=== PATIENT | male | born 1930 | race Caucasian/White ===

== ENCOUNTER → 2017-05-24 | Outpatient (CLI) | payer MEDICARE ==
--- NOTE | 2017-05-24 16:17 | US ---
EXAMINATION TYPE: US bladder DATE OF EXAM: 05/24/2017 COMPARISON: NONE CLINICAL HISTORY: 86-year-old male R39.198 Difficulty Urinating. SAP SPECIALIST NOTES: Patient drank water an hour before, his bladder was empty for the exam. Patient fe els he never fills his bladder, but does suffer from diarrhea. TECHNIQUE: Multiple sonographic images of the bladder were obtained. Findings: Unable to visualize bladder due to patient inability to fill it. Prominent prostate gland at 4.9 cm w peace. Because of bladder nonvisualization, the kidneys were briefly scanned. The right and left kidneys ha sure 10 and 11 cm, respectively without hydronephrosis. There is diffuse cortical thinning noted. IMPRESSION: 1. The patient was unable to fill the bladder one hour after oral prep. Additionally, the patient rep orts that he seldom urinates. 2. Nondistention of the bladder limits its evaluation. There is a mildly enlarged prostate gland. 3. Renal cortical thinning suggests chronic medical renal disease. Clinically correlate.
== END | disposition home or self-care (01) ==
LOC: RADUSWWP 15:34
PROVIDERS: ATTEND Family Medicine
DX: N40.0 Benign prostatic hyperplasia without lower urinary tract symptoms (principal); N28.89 Other specified disorders of kidney and ureter; Z91.09 Other allergy status, other than to drugs and biological substances
CPT/HCPCS: 76857

== ENCOUNTER → 2018-08-06 | Outpatient (CLI) | payer MEDICARE ==
--- NOTE | 2018-08-06 15:52 | US ---
EXAMINATION TYPE: US kidneys/renal and bladder DATE OF EXAM: 08/06/2018 COMPARISON: NONE CLINICAL HISTORY: N18.3 CKD. CKD EXAM MEASUREMENTS: Right Kidney: 9.1 x 4.9 x 4.6 cm Left Kidney: 11.0 x 6.0 x 5.3 cm Right Kidney: measures small in size compared to left kidney, cortical thinning Left Kidney: cortical thinning, lobulated contour Bladder: not fully distended Bilateral Jets seen: no There is no evidence for hydronephrosis at this point in time. No nephrolithiasis is seen. No rossy s are identified. The urinary bladder is anechoic. Bilateral ureteral jets are seen. IMPRESSION: Renal parenchymal thinning noted of the bilateral kidneys.
== END | disposition home or self-care (01) ==
LOC: RADUSWWP 14:06
PROVIDERS: ATTEND Family Medicine
DX: N28.9 Disorder of kidney and ureter, unspecified (principal); Z88.8 Allergy status to other drugs, medicaments and biological substances
CPT/HCPCS: 76770

== ENCOUNTER → 2018-09-03 | Outpatient (CLI) | payer MEDICARE ==
--- NOTE | 2018-09-03 16:12 | NM ---
EXAMINATION TYPE: NM bone scan whole body DATE OF EXAM: 09/03/2018 COMPARISON: NONE HISTORY: Back pain Delayed whole-body scanning was performed following the injection of 23.4 mCi Tc 99m MDP. Images acq uired 4 hours post injection. FINDINGS: Uptake within the wrists, shoulders, sternoclavicular joints is likely degenerative. Soft tissue upta ke is normal. Bandlike activity within the lumbar spine likely indicative of compression deformities, there is a mild scoliosis. There is mild uptake also at the costovertebral joints of the lower thora cic spine likely degenerative. Photopenic regions in the knees compatible with prior knee arthroplast ies. Small focal area of increased uptake present along the right anterior seventh rib is likely post traumatic IMPRESSION: There may be gastric chronic compression fractures within the lumbar spine. Degenerative changes, ost eoarthritis also likely present. Correlate for history of trauma to the anterior right seventh rib.
== END | disposition home or self-care (01) ==
LOC: RADNMMAIN 11:13
PROVIDERS: ATTEND Family Medicine
DX: M54.5 Low back pain (principal); Z88.8 Allergy status to other drugs, medicaments and biological substances
CPT/HCPCS: 78306; A9503

== ENCOUNTER 2018-09-19 05:53 | Day surgery (SDC) | payer MEDICARE ==
[2018-09-18 16:06] VITALS: BMI 23.2
[~2018-09-19 05:53] MED LIST: LACTATED RINGERS 1,000 ML IV SCH; LIDOCAINE 1% 20 ML VIAL (10MG/ML) FOR IV START INTRADERMA PRN; MIDAZOLAM 2 MG/2 ML VIAL IV PRN; Pre Op ABX Message 1 EACH MISC MISCELLANE ONE
[2018-09-19 06:50] VITALS: TEMP 97.1
[2018-09-19] MEDS ORDERED: fentaNYL (PF) 50 MCG/ML 2 ML AMP ONE (07:03)
[2018-09-19] MEDS ORDERED: LIDOCAINE 1% INJ 10MG/ML (20 ML MDV) ONE (07:03)
[2018-09-19] MEDS ORDERED: PROPOFOL 10 MG/ML 20 ML VIAL IV ONE (07:03)
[2018-09-19 08:35] LABS: Basophils % (A) 1 %; Eosinophils # (A) 0.1 k/uL (0-0.7); Eosinophils % (A) 4 %; HCT 25.2 % (39.0-53.0); Lymphocytes # (A) 1.2 k/uL (1.0-4.8); Lymphocytes % (A) 41 %; MCH 31.7 pg (25.0-35.0); MCHC 32.3 g/dL (31.0-37.0); MCV 98.2 fL (80.0-100.0); Macrocytosis Slight; Mean Platelet Volume 7.2; Monocytes # (A) 0.2 k/uL (0-1.0); Monocytes % (A) 6 %; Neutrophils # (A) 1.4 k/uL (1.3-7.7); Neutrophils % (A) 47 %; Platelet Count 228 k/uL (150-450); RBC 2.56 m/uL (4.30-5.90); WBC 2.9 k/uL (3.8-10.6)
[2018-09-19 08:42] LABS: HGB 8.1 gm/dL (13.0-17.5)
[2018-09-19 08:44] VITALS: RESP 18
[2018-09-19 09:26] VITALS: BP 91/46; PULSE 78
--- NOTE | 2018-09-19 10:53 | PCN ---
PROCEDURE NOTE PROCEDURE: Bone marrow aspirate and biopsy. INDICATION: Anemia and monoclonal gammopathy. After obtaining consent from the patient, the procedure was performed in the endoscopy suite under general anesthesia performed by Anesthesia Team. The patient was put in left lateral decubitus position. The right posterior iliac crest was localized. Skin was cleansed with ChloraPrep, all sterile procedures were followed. 1 mL of 2% Xylocaine was used for local anesthetic. needle was inserted. A 15 mL of aspirate and 1 cm core biopsy was obtained without any difficulties. Pressure applied afterwards. There was negligible blood loss. Patient tolerated the procedure very well without any immediate complications. MMODL / IJN: [id number] /
== END 2018-09-19 09:34 | disposition home or self-care (01) ==
LOC: OR 05:53
PROVIDERS: ATTEND Internal Medicine Hematology & Oncology
DX: I25.10 Atherosclerotic heart disease of native coronary artery without angina pectoris (principal); I10 Essential (primary) hypertension; E78.5 Hyperlipidemia, unspecified; R97.20 Elevated prostate specific antigen [PSA]; Z96.653 Presence of artificial knee joint, bilateral; Z95.1 Presence of aortocoronary bypass graft; Z85.828 Personal history of other malignant neoplasm of skin; Z87.891 Personal history of nicotine dependence; M19.90 Unspecified osteoarthritis, unspecified site; Z83.2 Family history of diseases of the blood and blood-forming organs and certain disorders involving the immune mechanism; Z79.82 Long term (current) use of aspirin; Z79.899 Other long term (current) drug therapy; Z91.09 Other allergy status, other than to drugs and biological substances
CPT/HCPCS: 85025; 38222; J2001; J3010; J2704

== ENCOUNTER → 2018-10-06 | Outpatient (CLI) | payer MEDICARE ==
--- NOTE | 2018-10-06 15:19 | XR ---
EXAMINATION TYPE: XR bone survey complete DATE OF EXAM: 10/06/2018 COMPARISON: NONE HISTORY: Multiple myeloma Frontal view of the chest, 2 views of the calvarium, frontal views of the proximal upper and lower ex tremities, 2 views of the spine, frontal view of the pelvis submitted on a total of 17 images. Multiple punched-out lucencies are present within the long bones of the proximal upper and lower extr emities. The pelvis shows too numerous to count punched-out lesions. Marked degenerative disc change and facet arthropathy noted in the lumbar spine, bone mineralization is reduced. Superior endplate de pression is present at L1 and T12. Patient is status post left knee arthroplasty. Surgical clips are present in the left lower extremity medially likely due to pain harvest. Patient is post median white otomy. Chest shows similar findings with multiple ribs and clavicles showing too numerous to count pu nched-out lucencies. Aorta is dense. Several arthropathy changes are present in the cervical spine, d egenerative disc changes with loss of disc height C4-5, C6-7. Calvarium also shows punched-out lesion s present. Arthropathy present within the shoulders. IMPRESSION: Multiple punched-out lucencies within the bones consistent with patient's history of mult iple myeloma. Additional findings above.
== END | disposition home or self-care (01) ==
LOC: RADXRMAIN 13:56
PROVIDERS: ATTEND Internal Medicine Hematology & Oncology
DX: M51.36 Other intervertebral disc degeneration, lumbar region (principal); M47.812 Spondylosis without myelopathy or radiculopathy, cervical region; M46.96 Unspecified inflammatory spondylopathy, lumbar region; C90.00 Multiple myeloma not having achieved remission; D61.818 Other pancytopenia; R97.20 Elevated prostate specific antigen [PSA]; I25.10 Atherosclerotic heart disease of native coronary artery without angina pectoris; Z96.652 Presence of left artificial knee joint; M19.019 Primary osteoarthritis, unspecified shoulder
CPT/HCPCS: 77075

== ENCOUNTER 2018-10-13 14:36 | Inpatient (IN) | payer MEDICARE ==
[2018-10-13] MEDS ORDERED: MORPHINE SULFATE 4 MG/ML SYRINGE IVP STA (17:58)
[2018-10-13 18:11] LABS: Appearance,Urine Clear (Clear); Bilirubin,Urine Negative (Negative); Blood,Urine Negative (Negative); Budding Yeast,Urine Occasional /hpf; Color,Urine Light Yellow; Glucose,Urine (UA) Negative (Negative); Hyaline Casts,Urine 1 /lpf (0-2); Ketones,Urine Trace (Negative); Leukocyte Esterase,Urine Negative (Negative); Mucus,Urine Rare /hpf; Nitrite,Urine Negative (Negative); PH, Urine 6.5 (5.0-8.0); Protein,Urine 1+ (Negative); Specific Gravity,Urine 1.015 (1.001-1.035); Urobilinogen,Urine <2.0 mg/dL (<2.0)
[2018-10-13 18:14] LABS: Albumin 3.9 g/dL (3.5-5.0); Calcium 10.4 mg/dL (8.4-10.2); Total Bilirubin 0.6 mg/dL (0.2-1.3); Total Protein 8.3 g/dL (6.3-8.2)
[2018-10-13 18:16] LABS: Potassium 4.4 mmol/L (3.5-5.1)
--- NOTE | 2018-10-13 18:48 | XR ---
EXAMINATION TYPE: XR chest 2V DATE OF EXAM: 10/13/2018 COMPARISON: 10/25/2009 HISTORY: 88-year-old male with pain TECHNIQUE: AP and lateral views FINDINGS: Heart upper limits of normal in size. Elongation/ectasia of the thoracic aorta is similar. No consoli dation or pleural effusion. Subtle nodular density peripheral right upper lobe may be summation artif act. Advanced degenerative changes at the glenohumeral joint. Median sternotomy wires and post-CABG clips. IMPRESSION: 1. Borderline heart size. Ectatic/tortuous thoracic aorta. No definite acute process. 2. Subtle nodular density peripheral right upper lobe could represent summation artifact or underlyin g pulmonary nodule. Nonemergent follow-up contrast-enhanced CT chest can further evaluate.
--- NOTE | 2018-10-13 19:12 | CT ---
EXAMINATION TYPE: CT abdomen pelvis w con DATE OF EXAM: 10/13/2018 COMPARISON: NONE HISTORY: 88-year-old male Back and abdominal pain. TECHNIQUE: Contiguous axial scanning of the abdomen and pelvis following administration of 100 ml Iso caitlin 300 IV contrast. Delayed images through the kidneys and coronal/sagittal reconstructions perform ed. CT DLP: 918.1 mGycm Automated exposure control for dose reduction was used. FINDINGS: Median sternotomy wires. Heart upper limits of normal in size. Ectatic aortic root at 3.8 cm. Partial ly visualized aneurysm ascending aorta at 4.3 cm. Descending thoracic aorta is borderline aneurysmal at 3.0 cm. Prominent hazy atelectasis in the lower lungs with some emphysematous change and air trapping. Arterial phase imaging of the liver, adrenal glands, kidneys, spleen with hilar splenule, and atrophi c pancreas show no gross abnormal body. No dilated small bowel, free fluid, or free air. Some scattered liquid stool seen within the colon with mild to moderate stool burden. Sigmoid diverti culosis. No pericolonic inflammatory change. There is cholelithiasis with calculi measuring up to 2.4 cm. Moderate to severe atherosclerotic calcifications within the abdominal aorta. Upper abdominal aorta e ctatic and 2.9 cm. No mesenteric or retroperitoneal lymphadenopathy. Circumferential bladder wall thickening. Prostate gland enlargement measuring 4.5 cm with some impres ida onto the posterior bladder base. Multiple pelvic phleboliths. No abnormal fluid collection in th e pelvis or pelvic lymphadenopathy seen. Multi focal small lucencies including areas of endosteal scalloping are demonstrated throughout the o sseous structures. Lumbar spine reported separately. IMPRESSION: 1. Lumbar spine reported separately. However, there are numerous small rounded lucencies throughout t he osseous structures with areas of endosteal scalloping as well. Underlying lesions such as lytic me tastatic disease or multiple myeloma is suggested. Further appropriate workup recommended. 2. Liquid stool throughout the colon. Correlate for enteritis. Sigmoid diverticulosis without acute d iverticulitis. 3. Mild circumferential bladder wall thickening could represent chronic bladder wall hypertrophy or c ystitis. Clinically correlate. Prostate gland is mildly enlarged at 4.5 cm wide. 4. Cholelithiasis. 5. Ectatic upper abdominal aorta 2.9 cm. Partially visualized aneurysmal ascending aorta 4.3 cm.
--- NOTE | 2018-10-13 19:20 | CT ---
EXAMINATION TYPE: CT thor lumbar spine w con DATE OF EXAM: 10/13/2018 COMPARISON: None HISTORY: 88-year-old male Back and abdominal pain. TECHNIQUE: Contiguous axial scanning of the thoracic and lumbar spine performed with IV Contrast, pat ient injected with 80ml mL of Isovue 300. Coronal/sagittal reconstructions performed. CT DLP: 918.1 mGycm Automated exposure control for dose reduction was used. FINDINGS: Heart borderline enlarged. Median sternotomy wires. Aneurysmal ascending aorta 4.4 cm. Large caliber to the main right and left pulmonary arteries measuring up to 3.0 cm suggesting underlying pulmonary arterial hypertension. Scattered mosaic attenuation within the lungs suggesting air trapping and small airways disease. Osseous structures demonstrate extensive burden of small lytic lesions. There are multiple areas of e ndosteal scalloping that results. Severe osteopenia limits the evaluation. Overall vertebral body heights appear maintained. Trace grade 1 anterolisthesis at C7-T1. Otherwise, alignment is maintained. Accentuated upper thoraci c kyphosis. Advanced degenerative disc disease lumbar spine and hypertrophic facet arthropathy with Baastrup's di sease in the lumbar spine. No definite acute fractures identified. IMPRESSION: 1. SEVERE DEMINERALIZATION OF THE OSSEOUS STRUCTURES LIMITS EVALUATION. 2. DIFFUSE, INNUMERABLE LYTIC LESIONS THROUGHOUT THE VISUALIZED SKELETON. MANY LESIONS RESULT IN ENDO STEAL SCALLOPING. CORRELATE FOR LYTIC METASTATIC DISEASE OR MULTIPLE MYELOMA. 3. 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 ACCENTUATED UPPER THORACI C KYPHOSIS. 4. ALLOWING FOR THE SEVERE DEGREE OF OSTEOPENIA, NO DEFINITE ACUTE FRACTURE OF THE THORACIC OR LUMBAR SPINE IS SEEN. GRADE 1 ANTEROLISTHESIS AT C7-T1. 5. 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 PULMONARY ARTERIAL HYPERTENSION. SUSPECT SMALL AIRWAYS DISEAS E IN THE LUNGS.
[2018-10-13 19:44] LABS: Basophils % (A) 0 %; Eosinophils % (A) 1 %; HCT 25.6 % (39.0-53.0); HGB 8.3 gm/dL (13.0-17.5); Lymphocytes % (A) 32 %; MCH 31.9 pg (25.0-35.0); MCHC 32.6 g/dL (31.0-37.0); MCV 98.1 fL (80.0-100.0); Mean Platelet Volume 7.3; Monocytes # (A) 0.2 k/uL (0-1.0); Monocytes % (A) 7 %; Neutrophils # (A) 1.8 k/uL (1.3-7.7); Neutrophils % (A) 58 %; Platelet Count 210 k/uL (150-450); RDW 15.4 % (11.5-15.5); WBC 3.2 k/uL (3.8-10.6)
--- NOTE | 2018-10-13 20:19 | ED ---
Back Pain HPI - General Chief Complaint: Back Pain/Injury Stated Complaint: Pain in Back/Side Time Seen by Provider: 10/13/18 16:44 Source: patient Limitations: no limitations - History of Present Illness Initial Comments: 88-year-old male presenting for "pain all over", she states she has had pain all over for months. Denies falls. He states that the pain hasnt increased recent however has been persistent and untolerable he has been having difficulty secondary to the pain getting around his home, he is scared of falling. Lives alone with . He states he was diagnosed with multiple melanoma week prior and is seeing Dr. Valverde. She could not take the pain today and called Dr. Valverde's office presents emergency department for CT. Patient states he has pain all over the abdomen in the back he states he has had good pain. Patient states her lesions on his ribs and throughout the spine. Patient denies loss of bowel bladder control, urinary retention. He denies any fevers, chest pain, leg swelling, shortness of breath. Remaining ROS (-). Pt afebrile on arrival VS stable. - Related Data Home Medications Medication Instructions Recorded Confirmed Aspirin 81 mg PO DAILY 08/30/15 09/18/18 Celecoxib [CeleBREX] 200 mg PO DAILY 08/30/15 09/19/18 Metoprolol Tartrate [Lopressor] 25 mg PO DAILY 08/30/15 09/19/18 Simvastatin [Zocor] 20 mg PO HS 08/30/15 09/19/18 Vitamin E 400 unit PO DAILY 08/30/15 09/19/18 Acetaminophen [Tylenol Arthritis] 650 mg PO Q6H PRN 09/18/18 09/19/18 Cholecalciferol [Vitamin D3 (25 1,000 unit PO DAILY 09/18/18 09/19/18 Mcg = 1000 Iu)] Isosorbide Dinitrate 30 mg PO DAILY 09/18/18 09/19/18 Tamsulosin [Flomax] 0.4 mg PO DAILY 09/18/18 09/19/18 Allergies Allergy/AdvReac Type Severity Reaction Status Date / Time enalapril maleate AdvReac insomnia Verified 10/13/18 15:54 [From Vasotec] enalaprilat dihydrate AdvReac insomnia Verified 10/13/18 15:54 [From Vasotec] cold & sinus medication AdvReac insomnia Uncoded 10/13/18 15:54 Review of Systems ROS Statement: Those systems with pertinent positive or pertinent negative responses have been documented in the HPI. ROS Other: All systems not noted in ROS Statement are negative. Past Medical History Past Medical History: Cancer, GERD/Reflux, Hyperlipidemia, Hypertension, Osteoarthritis (OA), Prostate Disorder Additional Past Medical History / Comment(s): hx. skin cancer w/radiation yrs ago, not sure why having this procedure History of Any Multi-Drug Resistant Organisms: None Reported Past Surgical History: Coronary Bypass/CABG, Joint Replacement, Orthopedic Surgery Additional Past Surgical History / Comment(s): quad. bypass 2009, left knee replaced x2, adam cataracts, shoulder surg. Past Anesthesia/Blood Transfusion Reactions: No Reported Reaction Past Psychological History: No Psychological Hx Reported Smoking Status: Former smoker - Past Family History Mother Family Medical History: Myocardial Infarction (DC) Father Additional Family Medical History / Comment(s): emphysema,Alzheimer's General Exam - General Exam Comments Initial Comments: General: The patient is awake and alert, appear uncomfortable Eye: +3 mm pupils are equal, round and reactive to light, extra-ocular movements are intact. No nystagmus. There is normal conjunctiva bilaterally. No signs of icterus. Ears, nose, mouth and throat: There are moist mucous membranes and no oral lesions. Neck: The neck is supple, there is no tenderness or JVD. Cardiovascular: There is a regular rate and rhythm. No murmur, rub or gallop is appreciated. Respiratory: Lungs are clear to auscultation, respirations are non-labored, breath sounds are equal. No wheezes, stridor, rales, or rhonchi. Gastrointestinal: Soft, non-distended, non-tender abdomen without masses or organomegaly noted. There is no rebound or guarding present. No CVA tenderness. Bowel sounds are unremarkable. Musculoskeletal: Midline tenderness to palpation of the thoracic and lumbar spine. (+) SLR b/l. Normal ROM of the LE with full strength. Full sensation of the LE b/l. Strength 5/5. DP and Radial pulses equal bilaterally 2+. Pain to palpation of the lower ribs. Neurological: A&O x 3. CN II-XII intact, There are no obvious motor or sensory deficits. Coordination appears grossly intact. Speech is normal. Skin: Skin is warm and dry and no rashes or lesions are noted. Psychiatric: Cooperative, appropriate mood & affect, normal judgment. Limitations: no limitations Course Vital Signs 10/13/18 10/13/18 10/13/18 15:52 18:01 19:27 Temperature 97.7 F Pulse Rate 55 L 67 63 Respiratory 16 18 18 Rate Blood Pressure 154/69 177/74 162/68 O2 Sat by Pulse 100 99 97 Oximetry Medical Decision Making - Medical Decision Making 88-year-old male with recent diagnosis of multiple melanoma presenting for pain all over. Patient states pain is not controlled outpatient told to come for a CT by Dr. Valverde his oncologist. CT revealed lytic lesions of the spine diffusely this finding consistent with multiple myeloma. Patient had previous bone scan revealing rib lesions patient has point localized tenderness. There is no acute intra-abdominal processes at this time. There is noted to aneursym of the aorta. No evidence of dissection. Pt denies CP/SOB. Pain controlled morphine. Patient requesting food. Patient's family is having difficulty at home managing care secondary to pain. At this time feel patient should be admitted for placement via social work if the patient is not safe at home. Patient will also be admitted for pain control. - Lab Data Result diagrams: 10/13/18 19:20 10/13/18 17:42 Lab Results 10/13/18 10/13/18 10/13/18 Range/Units 17:42 17:42 17:53 WBC (3.8-10.6) k/uL RBC (4.30-5.90) m/uL Hgb (13.0-17.5) gm/dL Hct (39.0-53.0) % MCV (80.0-100.0) fL MCH (25.0-35.0) pg MCHC (31.0-37.0) g/dL RDW (11.5-15.5) % Plt Count (150-450) k/uL Neutrophils % % Lymphocytes % % Monocytes % % Eosinophils % % Basophils % % Neutrophils # (1.3-7.7) k/uL Lymphocytes # (1.0-4.8) k/uL Monocytes # (0-1.0) k/uL Eosinophils # (0-0.7) k/uL Basophils # (0-0.2) k/uL Sodium 137 (137-145) mmol/L Potassium 4.4 (3.5-5.1) mmol/L Chloride 103 (98-107) mmol/L Carbon Dioxide 28 (22-30) mmol/L Anion Gap 6 mmol/L BUN 25 H (9-20) mg/dL Creatinine 1.12 (0.66-1.25) mg/dL Est GFR (CKD-EPI)AfAm 67 (>60 ml/min/1.73 sqM) Est GFR (CKD-EPI)NonAf 58 (>60 ml/min/1.73 sqM) Glucose 86 (74-99) mg/dL Plasma Lactic Acid Walker 1.1 (0.7-2.0) mmol/L Calcium 10.4 H (8.4-10.2) mg/dL Total Bilirubin 0.6 (0.2-1.3) mg/dL AST 25 (17-59) U/L ALT 18 L (21-72) U/L Alkaline Phosphatase 85 (38-126) U/L Total Protein 8.3 H (6.3-8.2) g/dL Albumin 3.9 (3.5-5.0) g/dL Urine Color Light Yellow Urine Appearance Clear (Clear) Urine pH 6.5 (5.0-8.0) Ur Specific [place] 1.015 (1.001-1.035) Urine Protein 1+ H (Negative) Urine Glucose (UA) Negative (Negative) Urine Ketones Trace H (Negative) Urine Blood Negative (Negative) Urine Nitrite Negative (Negative) Urine Bilirubin Negative (Negative) Urine Urobilinogen <2.0 (<2.0) mg/dL Ur Leukocyte Esterase Negative (Negative) Hyaline Casts 1 (0-2) /lpf Urine Mucus Rare H (None) /hpf Urine Yeast (Budding) Occasional H (None) /hpf 10/13/18 Range/Units 19:20 WBC 3.2 L (3.8-10.6) k/uL RBC 2.60 L (4.30-5.90) m/uL Hgb 8.3 L (13.0-17.5) gm/dL Hct 25.6 L (39.0-53.0) % MCV 98.1 (80.0-100.0) fL MCH 31.9 (25.0-35.0) pg MCHC 32.6 (31.0-37.0) g/dL RDW 15.4 (11.5-15.5) % Plt Count 210 (150-450) k/uL Neutrophils % 58 % Lymphocytes % 32 % Monocytes % 7 % Eosinophils % 1 % Basophils % 0 % Neutrophils # 1.8 (1.3-7.7) k/uL Lymphocytes # 1.0 (1.0-4.8) k/uL Monocytes # 0.2 (0-1.0) k/uL Eosinophils # 0.0 (0-0.7) k/uL Basophils # 0.0 (0-0.2) k/uL Sodium (137-145) mmol/L Potassium (3.5-5.1) mmol/L Chloride (98-107) mmol/L Carbon Dioxide (22-30) mmol/L Anion Gap mmol/L BUN (9-20) mg/dL Creatinine (0.66-1.25) mg/dL Est GFR (CKD-EPI)AfAm (>60 ml/min/1.73 sqM) Est GFR (CKD-EPI)NonAf (>60 ml/min/1.73 sqM) Glucose (74-99) mg/dL Plasma Lactic Acid Walker (0.7-2.0) mmol/L Calcium (8.4-10.2) mg/dL Total Bilirubin (0.2-1.3) mg/dL AST (17-59) U/L ALT (21-72) U/L Alkaline Phosphatase (38-126) U/L Total Protein (6.3-8.2) g/dL Albumin (3.5-5.0) g/dL Urine Color Urine Appearance (Clear) Urine pH (5.0-8.0) Ur Specific [place] (1.001-1.035) Urine Protein (Negative) Urine Glucose (UA) (Negative) Urine Ketones (Negative) Urine Blood (Negative) Urine Nitrite (Negative) Urine Bilirubin (Negative) Urine Urobilinogen (<2.0) mg/dL Ur Leukocyte Esterase (Negative) Hyaline Casts (0-2) /lpf Urine Mucus (None) /hpf Urine Yeast (Budding) (None) /hpf Disposition Clinical Impression: Intractable pain, Hx of multiple myeloma, Back pain, Rib pain Disposition: HOME SELF-CARE Condition: Stable Is patient prescribed a controlled substance at d/c from ED?: No Referrals: Jose Miguel Tapia MD [Primary Care Provider] - 1-2 days Time of Disposition: 20:20 Decision to Admit Reason: Admit from EC Decision Date: 10/13/18 Decision Time: 20:20
[2018-10-13] MEDS ORDERED: NALOXONE 0.4 MG/ML 1 ML VIAL IV PRN (20:20)
[2018-10-13] MEDS: MORPHINE SULFATE 4 MG/ML SYRINGE IV PRN (21:53)
[2018-10-14 00:35] VITALS: BMI 21.4
[2018-10-14] MEDS ORDERED: MELATONIN 5 MG TABLET PO PRN (00:35)
[2018-10-14] MEDS: SODIUM CHLORIDE 0.9% 1,000 ML IV SCH ×3 (01:04→23:58)
[2018-10-14] MEDS: MORPHINE SULFATE 4 MG/ML SYRINGE IV PRN ×3 (01:04→12:31)
[2018-10-14] MEDS ORDERED: ACETAMINOPHEN TAB 325 MG TAB PO PRN (08:20)
[2018-10-14] MEDS ORDERED: NITROGLYCERIN SL TABS 0.4 MG TAB SUBLINGUAL PRN (11:39)
[2018-10-14] MEDS ORDERED: ISOSORBIDE MONONITRATE ER 30 MG TAB.ER.24H PO SCH (11:45)
[2018-10-14] MEDS ORDERED: DEXAMETHASONE 4 MG TAB PO STA (11:51)
[2018-10-14] MEDS ORDERED: SODIUM CHLORIDE 0.9% 250 ML with PAMIDRONATE 60 MG IV ONE ×2 (11:51)
[2018-10-14] MEDS ORDERED: PANTOPRAZOLE 40 MG TABLET PO STA (11:59)
--- NOTE | 2018-10-14 12:01 | P.CONS ---
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 On September 03 he did have a bone scan which failed to show metastatic myeloma to the bone on 09/19/2018 bone marrow biopsy was performed and positive for sheets of record get monoclonal A light chain restricted cells consistent with multiple myeloma although cytogenetics were revealing as normal. He was last seen by Dr. Valverde office at that time the risks and benefits of treatment given his advanced age and multiple comorbidities was discussed although his most recent bone scan revealed no evidence of metastatic myeloma to the bone his back pain has pers isted over the last month as well as his calcium levels are elevated therefore treatment with Revlimid and weekly dexamethasone and every 6 weeksand Zometa has been ordered he has not yet started this treatment if his back pain is persistent and unrelieved with current therapy an MRI of the spine has been ordered for potential palliative radiation Review of Systems 14 point review of systems is assessed and completed in all negative except for HPI Past Medical History Past Medical History: Cancer, GERD/Reflux, Hyperlipidemia, Hypertension, Osteoarthritis (OA), Prostate Disorder Additional Past Medical History / Comment(s): hx. skin cancer w/radiation yrs ago, not sure why having this procedure History of Any Multi-Drug Resistant Organisms: None Reported Past Surgical History: Coronary Bypass/CABG, Joint Replacement, Orthopedic Surgery Additional Past Surgical History / Comment(s): quad. bypass 2009, left knee replaced x2, adam cataracts, shoulder surg. Past Anesthesia/Blood Transfusion Reactions: No Reported Reaction Past Psychological History: No Psychological Hx Reported Smoking Status: Former smoker - Past Family History Mother Family Medical History: Myocardial Infarction ([place]) Father Additional Family Medical History / Comment(s): emphysema,Alzheimer's Medications and Allergies Home Medications Medication Instructions Recorded Confirmed Type Aspirin 81 mg PO DAILY 08/30/15 10/14/18 History Celecoxib [CeleBREX] 200 mg PO BID 08/30/15 10/14/18 History Metoprolol Tartrate [Lopressor] 25 mg PO DAILY 08/30/15 10/14/18 History Simvastatin [Zocor] 20 mg PO HS 08/30/15 10/14/18 History Tamsulosin [Flomax] 0.4 mg PO DAILY 09/18/18 10/14/18 History Cyanocobalamin (Vitamin B-12) 1,000 mcg PO DAILY 10/14/18 10/14/18 History [Vitamin B-12] Ergocalciferol (Vitamin D2) 50,000 unit PO Q28D 10/14/18 10/14/18 History [Vitamin D2] HYDROcodone/APAP 5-325MG [Luna 1 tab PO Q6H PRN 10/14/18 10/14/18 History 5-325] Isosorbide Mononitrate ER [Imdur] 30 mg PO DAILY 10/14/18 10/14/18 History Lenalidomide [Revlimid] 15 mg PO DIRECTED 10/14/18 10/14/18 History Nitroglycerin Sl Tabs [Nitrostat] 0.4 mg SUBLINGUAL Q5M PRN 10/14/18 10/14/18 History Vitamin B Complex 1 cap PO DAILY 10/14/18 10/14/18 History rOPINIRole HCL [Requip] 0.25 mg PO HS 10/14/18 10/14/18 History traZODone HCL 50 - 100 mg PO HS PRN 10/14/18 10/14/18 History Allergies Allergy/AdvReac Type Severity Reaction Status Date / Time enalapril maleate AdvReac insomnia Verified 10/13/18 20:46 [From Vasotec] enalaprilat dihydrate AdvReac insomnia Verified 10/13/18 20:46 [From Vasotec] cold & sinus medication AdvReac insomnia Uncoded 10/13/18 15:54 Physical Exam Vitals: Vital Signs Temp Pulse Pulse Pulse Resp BP BP 10/14/18 08:00 98.4 F 66 70 16 121/57 10/14/18 02:15 70 16 10/13/18 23:45 97.9 F 70 14 128/78 10/13/18 22:14 98.3 F 133 H 15 133/69 10/13/18 22:10 70 17 10/13/18 19:27 63 18 162/68 10/13/18 18:01 67 18 177/74 10/13/18 15:52 97.7 F 55 L 16 154/69 Pulse Ox 10/14/18 08:00 95 10/14/18 02:15 10/13/18 23:45 95 10/13/18 22:14 94 L 10/13/18 22:10 10/13/18 19:27 97 10/13/18 18:01 99 10/13/18 15:52 100 Intake and Output 10/13/18 10/14/18 10/14/18 22:59 06:59 14:59 Intake Total 10 Output Total 125 Balance -125 10 Intake: IV 10 Invasive Line 1 10 Output: Urine 125 Other: Voiding Method Urinal Urinal Urinal # Voids 2 Weight 65.771 kg General: Alert and Oriented x3, No Acute Distress Head: Normocytic, Atraumatic Neck: Supple Mouth: No Lesions, No Thrush Eyes: Non-sclerotic No Palpable cervical, supraclavicular, axillary adenopathy Heart: Regular Rate, Regular Rhythm Lungs: Clear to Ausculations, No Wheeze, No Rhonchi, Diminishe bilateral lower lobes, No increased respiratory effort noted Abdomen: Soft, Non-Distended, Non-Tended, BSx4 Extremities: No Edema, Equal Strength Neurological: No Focal Defects: No sensory or motor deficits noted Psych: Calm and cooperative Results CBC & Chem 7: 10/14/18 12:47 10/14/18 12:47 Labs: Abnormal Lab Results - Last 24 Hours (Table) 10/13/18 10/13/18 10/13/18 Range/Units 17:42 17:53 19:20 WBC 3.2 L (3.8-10.6) k/uL RBC 2.60 L (4.30-5.90) m/uL Hgb 8.3 L (13.0-17.5) gm/dL Hct 25.6 L (39.0-53.0) % BUN 25 H (9-20) mg/dL Calcium 10.4 H (8.4-10.2) mg/dL ALT 18 L (21-72) U/L Total Protein 8.3 H (6.3-8.2) g/dL Urine Protein 1+ H (Negative) Urine Ketones Trace H (Negative) Urine Mucus Rare H (None) /hpf Urine Yeast (Budding) Occasional H (None) /hpf Assessment and Plan Plan: Assessment and Recommendations: IgG [place] Multiple Myeloma - Recent Diagnosis: - Revlimid 15mg PO Daily Days 1-21, q28 and weekly Dexamethasone along with Zometa q6 weeks has been ordered although not started - Will initiate dexamethasone 20mg po x1 today, PPI, and a dose of aredia Hypercalcemia: - Secondary to multiple Myeloma - Aredia x1 today Back/Bone Pain secondary to Metastatic Disease Multiple Myeloma: - Consult has been placed for radiation oncology to evaluate for palliative xrt to spine. - Dex today should help with pain along with farrah MAYO.
[2018-10-14] MEDS: ASPIRIN 81 MG PO SCH (12:33)
[2018-10-14] MEDS: TAMSULOSIN 0.4 MG CAP.ER.24H PO SCH (12:33)
[2018-10-14] MEDS: MELOXICAM 7.5 MG TAB PO SCH (12:46)
[2018-10-14] MEDS: METOPROLOL TARTRATE 25 MG TAB PO SCH (12:55)
[2018-10-14] MEDS: ISOSORBIDE MONONITRATE ER 30 MG TAB.ER.24H PO SCH (12:55)
[2018-10-14 13:21] LABS: Albumin 3.6 g/dL (3.5-5.0); Calcium 10.1 mg/dL (8.4-10.2); Potassium 4.9 mmol/L (3.5-5.1); Total Bilirubin 0.4 mg/dL (0.2-1.3)
[2018-10-14 13:24] LABS: Basophils % (A) 0 %; Eosinophils # (A) 0.1 k/uL (0-0.7); Eosinophils % (A) 2 %; HCT 28.4 % (39.0-53.0); HGB 9.2 gm/dL (13.0-17.5); Hypochromasia Slight; Lymphocytes # (A) 0.8 k/uL (1.0-4.8); Lymphocytes % (A) 29 %; MCH 32.4 pg (25.0-35.0); MCHC 32.3 g/dL (31.0-37.0); MCV 100.2 fL (80.0-100.0); Macrocytosis Slight; Mean Platelet Volume 7.1; Monocytes # (A) 0.2 k/uL (0-1.0); Monocytes % (A) 6 %; Neutrophils # (A) 1.6 k/uL (1.3-7.7); Neutrophils % (A) 62 %; Platelet Count 226 k/uL (150-450); RBC 2.84 m/uL (4.30-5.90); RDW 15.6 % (11.5-15.5); WBC 2.7 k/uL (3.8-10.6)
[2018-10-14] MEDS: MORPHINE SULFATE ER 15 MG TABLET PO SCH ×2 (15:29→23:55)
--- NOTE | 2018-10-14 19:55 | HP ---
HISTORY AND PHYSICAL CHIEF COMPLAINT: Intractable back and abdominal pain. HISTORY OF PRESENT ILLNESS: This is another admission of very few for this 88-year-old white male to this hospital. He has been having increasing amounts of difficulty with back pain and anemia. He also has a history of hypertension and CAD. 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 Bone pain is getting worse. He has been on Vicodin at home, but it is not holding him. It is not known what therapy he will be a candidate for. REVIEW OF SYSTEMS: He has had no neurologic problems, headaches, change in vision or hearing, cough, hemoptysis, shortness of breath, abdominal pain, nausea, vomiting, hematemesis, melena, hematochezia, jaundice, hematuria, frequency, urgency, renal failure, diabetes, etc. Past medical history, family history, and personal and social histories reveal he is ALLERGIC TO [employer]ERIS[employer] INHIBITORS. CURRENT MEDICATIONS: Current medications include: 1. Nitro sublingually p.r.n. 2. B12 [id number]. 3. Vicodin 5 q.4 p.r.n. 4. Tamsulosin 0.4 at bedtime. 5. Isosorbide mononitrate 30 mg once a day. 6. Metoprolol 25 mg once a day. 7. Simvastatin 20 at bedtime. 8. Requip 0.25 at bedtime p.r.n. leg cramps. 9. Celebrex 200 twice a day. 10.Aspirin 81 mg. The remainder of his history is unremarkable. He used to smoke but does not any longer. He does not drink, either. There is a significant social problem, in that his is extremely frail, weak and has advanced stage IV congestive heart failure; he provides most of the care around the house. PHYSICAL EXAMINATION: Blood pressure is 116/70 with a pulse of 60 and regular, respirations 16. He is afebrile. In general he appeared to be slender and somewhat uncomfortable. Lymph nodes are not enlarged. Skin was clear. Head, ears, eyes, nose, mouth and throat unremarkable, the pupils being round and reactive and gaze conjugate. Carotids are normal. There are no bruits. Neck veins are not distended. Chest is clear to auscultation and percussion. The cardiac exam demonstrates normal sinus rhythm with no murmurs or extra sounds. The abdomen is flat and nontender without visceromegaly or masses. Extremities are normal. Neurologically he is intact. He is admitted to the hospital with the diagnoses: 1. Intractable bone pain. 2. Multiple myeloma. 3. Hypertension. 4. History of coronary artery disease. PLAN: 1. Bed rest. 2. IV fluids. 3. Consult with Hematology/Oncology. 4. Add MS Sharp to his Vicodin, which will be given p.r.n. for break-through pain. MMODL / IJN: [id number] /
--- NOTE | 2018-10-14 19:58 | PN ---
PROGRESS NOTE CHIEF COMPLAINT: Intractable bone pain in the back and ribs secondary to multiple myeloma. HISTORY OF PRESENT ILLNESS: This gentleman is currently resting reasonably comfortably. He is not short of breath. He has had no fever or chills. He has had no nausea or vomiting. Review of systems is otherwise at this time normal. He is voiding without any difficulty. PHYSICAL EXAMINATION: Vital signs are normal. Head, ears, eyes, nose, mouth and throat are normal. The chest is clear, but breath sounds are shallow. Cardiac exam sounds like sinus rhythm with no murmurs or extra sounds. The abdomen is flat and soft. Extremities are normal. IMPRESSION: 1. Multiple myeloma with bone pain in the spine and ribs. 2. Coronary artery disease. 3. Old chronic obstructive pulmonary disease. 4. Hypertension. PLAN: 1. Add MS Sharp to his program. 2. Consult Hematology/Oncology. MMODL / AYALA: [id number] /
[2018-10-14] MEDS: HYDROcodone/APAP 5-325MG 1 EACH TAB PO PRN (20:56)
[2018-10-15] MEDS: SODIUM CHLORIDE 0.9% 1,000 ML IV SCH (02:01)
[2018-10-15] MEDS: MORPHINE SULFATE 4 MG/ML SYRINGE IV PRN (03:07)
[2018-10-15] MEDS: TAMSULOSIN 0.4 MG CAP.ER.24H PO SCH (09:02)
[2018-10-15] MEDS: MORPHINE SULFATE ER 15 MG TABLET PO SCH ×2 (09:02→22:48)
[2018-10-15] MEDS: ISOSORBIDE MONONITRATE ER 30 MG TAB.ER.24H PO SCH (09:02)
[2018-10-15] MEDS: ASPIRIN 81 MG PO SCH (09:02)
[2018-10-15] MEDS: METOPROLOL TARTRATE 25 MG TAB PO SCH (09:02)
[2018-10-15] MEDS: MELOXICAM 7.5 MG TAB PO SCH (09:03)
[2018-10-15 11:44] LABS: Immunoglobulin A <25.5 mg/dL (60.0-350.0); Immunoglobulin M 28.5 mg/dL (40.0-280.0)
--- NOTE | 2018-10-15 12:15 | P.PN ---
Subjective Progress Note Date: 10/15/18 Principal diagnosis: Increased pain, inability to ambulate, MM Discussed with primary oncologist and would like further evaluation with MRI Objective - Vital Signs Vital signs: Vital Signs Temp 97.6 F 10/15/18 05:02 Pulse 66 10/15/18 05:02 Resp 16 10/15/18 05:02 BP 138/82 10/15/18 05:02 Pulse Ox 91 L 10/15/18 05:02 Intake & Output 10/14/18 10/15/18 10/15/18 18:59 06:59 18:59 Intake Total 850 750 Balance 850 750 Weight 65.771 kg Intake: IV 30 Invasive Line 1 30 Intake, IV Titration 750 Amount Sodium Chloride 0.9% 1, 600 000 ml @ 75 mls/hr IV . [id number] STACY Rx#:[id number] Sodium Chloride 0.9% 250 150 ml @ 83 mls/hr IV .Q3H1M ONE with Pamidronate 60 mg Rx#:[id number] Oral 820 Other: Voiding Method Urinal Toilet # Voids 4 - Exam General: Alert and Oriented x3, No Acute Distress Head: Normocytic, Atraumatic Neck: Supple Mouth: No Lesions, No Thrush Eyes: Non-sclerotic No Palpable cervical, supraclavicular, axillary adenopathy Heart: Regular Rate, Regular Rhythm Lungs: Clear to Ausculations, No Wheeze, No Rhonchi, Diminishe bilateral lower lobes, No increased respiratory effort noted Abdomen: Soft, Non-Distended, Non-Tended, BSx4 Extremities: No Edema, Equal Strength Neurological: No Focal Defects: No sensory or motor deficits noted Psych: Calm and cooperative - Labs CBC & Chem 7: 10/14/18 12:47 10/14/18 12:47 Labs: Abnormal Lab Results - Last 24 Hours (Table) 10/14/18 10/14/18 10/14/18 Range/Units 12:47 12:47 12:47 WBC 2.7 L (3.8-10.6) k/uL RBC 2.84 L (4.30-5.90) m/uL Hgb 9.2 L (13.0-17.5) gm/dL Hct 28.4 L (39.0-53.0) % MCV 100.2 H (80.0-100.0) fL RDW 15.6 H (11.5-15.5) % Lymphocytes # 0.8 L (1.0-4.8) k/uL Glucose 100 H (74-99) mg/dL ALT 15 L (21-72) U/L IgG 2660.0 H (700.0-1600.0) mg/dL IgA <25.5 L (60.0-350.0) mg/dL IgM 28.5 L (40.0-280.0) mg/dL Assessment and Plan Plan: Assessment and Recommendations: IgG [place] Multiple Myeloma - Recent Diagnosis: - Revlimid 15mg PO Daily Days 1-21, q28 and weekly Dexamethasone along with Zometa q6 weeks has been ordered although not started - Will initiate dexamethasone 20mg po x1 today, PPI, and a dose of aredia Hypercalcemia: - Secondary to multiple Myeloma - Aredia x1 today Back/Bone Pain secondary to Metastatic Disease Multiple Myeloma: - Consult has been placed for radiation oncology to evaluate for palliative xrt to spine. - Status Post dexamethasone and aredia x1 Plan: - MRI of spine - XRT palliative - PT/OT Ruby MAYO.
--- NOTE | 2018-10-15 18:08 | PN ---
PROGRESS NOTE CHIEF COMPLAINT: Back pain, anemia and weakness with multiple myeloma. HISTORY OF PRESENT ILLNESS: This gentleman is feeling a bit better. Pain is improved slightly. He is sitting up and able to the eat. Steroids have been started. PHYSICAL EXAM: Chest is clear. Cardiac exam is normal. Abdomen is soft and nontender. Extremities are normal. Neurological is intact. IMPRESSION: 1. Back pain due to multiple myeloma. 2. Coronary artery disease. 3. History of chronic obstructive pulmonary disease. PLAN: Await further recommendations from Oncology. He will probably be set up for radiation as an outpatient of the spine lesion and chemotherapy will also be introduced. He could probably go home whenever oncology clears him. MMODL / IJN: [id number] /
[2018-10-16] MEDS: SODIUM CHLORIDE 0.9% 1,000 ML IV SCH ×3 (05:24→22:00)
[2018-10-16] MEDS ORDERED: ALPRAZolam 1 MG TAB PO STA (09:09)
[2018-10-16] MEDS: ASPIRIN 81 MG PO SCH (09:21)
[2018-10-16] MEDS: MORPHINE SULFATE ER 15 MG TABLET PO SCH ×2 (09:21→20:56)
[2018-10-16] MEDS: ISOSORBIDE MONONITRATE ER 30 MG TAB.ER.24H PO SCH (09:21)
[2018-10-16] MEDS: MELOXICAM 7.5 MG TAB PO SCH (09:22)
[2018-10-16] MEDS: METOPROLOL TARTRATE 25 MG TAB PO SCH (09:22)
[2018-10-16] MEDS: TAMSULOSIN 0.4 MG CAP.ER.24H PO SCH (09:23)
--- NOTE | 2018-10-16 11:48 | MR ---
EXAMINATION TYPE: MR lumbar spine wo/w con DATE OF EXAM: 10/16/2018 COMPARISON: NONE HISTORY: Back/rib/abdominal pain, metastatic disease, hx melanoma TECHNIQUE: T1 and T2 axial and sagittal images of the lumbar spine are submitted. FINDINGS: There is no abnormal signal seen within the visualized spinal cord or paraspinal soft tissu es. There is diffuse abnormal signal throughout the visualized osseous structures in a pattern compat ible with widespread metastases to the lumbar segments and visualized pelvic bones. At L1-2 there is severe degenerative disc disease with facet arthropathy. There is central disc bulgi ng and borderline canal stenosis. Moderate to severe bilateral foraminal encroachment. At L2-3 there is severe degenerative disc disease with central disc protrusion and moderate canal pierce nosis. Facet arthropathy contributes and there is moderate to severe bilateral foraminal encroachment . At L3-4 there is near degenerative disc disease with broad-based disc protrusion, hypertrophic change of the facets and ligamentum flavum. Moderate canal stenosis and moderate to severe bilateral forami nal encroachment. At L4-5 there is severe degenerative disc disease with posterior disc bulging and hypertrophic spondy losis. Moderate to severe bilateral foraminal encroachment and moderate canal stenosis. Ligamentum fl avum hypertrophy and facet arthropathy contribute At L5-S1 there is severe degenerative disc disease with central disc protrusion. There is mild efface ment of thecal sac and moderate to severe bilateral foraminal encroachment. Borderline to mild centra l stenosis. IMPRESSION: 1. Diffuse bony metastasis with no evidence of cord compression or enhancing canal lesion. 2. Severe degenerative disc disease at all levels with significant canal stenosis and foraminal encro achment at all levels secondary to disc protrusions and hypertrophic changes. EXAMINATION TYPE: MR thoracic spine wo/w con DATE OF EXAM: 10/16/2018 COMPARISON: CT scan 10/13/2018 HISTORY: Back/rib/abdominal pain, metastatic disease, hx melanoma CONTRAST: Standard multiplanar, multisequence MRI departmental protocol utilizing 7 mL intravenous Gadavist jacobo olinium contrast. FINDINGS: There is a grade 1 anterolisthesis C7 on T1 with multilevel moderate to severe degenerative disc dise ase. Thoracic kyphosis noted. There is diffuse heterogeneous marrow changes throughout the visualized bone marrow suggestive of wid espread bony metastases. Disc bulging T1-T2, and T2-T3. No Canal stenosis. At T8-9 and T9-T10 there is central disc bulging but no canal stenosis or spinal cord contact. Mild loss of vertebral body height of T5 appears chronic. Multilevel facet arthropathy noted. Assessment spinal cord is limited due to motion artifact. Grossly no abnormal signal suspected. There is no enhancement or findings suspicious for cord compression. On the T1 images there is artifact at the level of T9-T10 on the sagittal images. However, the spinal cord has a normal appearance on the axial images suggesting artifact is the etiology. No diagnostic evidence of an enhancing mass. Small bilateral pleural effusions are seen. Localizing images demonstrates multilevel severe degenera tive disc disease of the cervical spine with probable bony involvement. There is a heterogeneous kumar marquis to all the visualized ribs suggestive of widespread bony metastases. IMPRESSION: 1. Diffuse abnormal pattern to the visualized osseous structures compatible with widespread bony meta stases. No enhancing soft tissue mass or cord compression. As noted above there is limitation in eval uation the lower thoracic spinal cord due to artifact on the sagittal images. However, the axial imag es demonstrate a normal signal pattern with no diagnostic evidence of mass. 2. Severe multilevel degenerative disc disease with multilevel disc bulging but no canal stenosis.
[2018-10-16] MEDS: MORPHINE SULFATE 4 MG/ML SYRINGE IV PRN (11:52)
--- NOTE | 2018-10-16 13:13 | P.PN ---
Subjective Progress Note Date: 10/16/18 Principal diagnosis: Increased pain, inability to ambulate, MM Will start patients revlimid, and add dexamethasone 20mg po daily x4 days. Have radiation see him for palliative radiation to begin. Objective - Vital Signs Vital signs: Vital Signs Temp 98 F 10/16/18 12:49 Pulse 70 10/16/18 12:49 Resp 16 10/16/18 12:49 BP 108/63 10/16/18 12:49 Pulse Ox 93 L 10/16/18 12:49 Intake & Output 10/15/18 10/16/18 10/16/18 18:59 06:59 18:59 Intake Total 2400 350 Output Total 250 Balance 2150 350 Intake: Oral 2400 350 Output: Urine 250 Other: Voiding Method Toilet Toilet # Voids 1 4 - Exam General: Alert and Oriented x3, No Acute Distress Head: Normocytic, Atraumatic Neck: Supple Mouth: No Lesions, No Thrush Eyes: Non-sclerotic No Palpable cervical, supraclavicular, axillary adenopathy Heart: Regular Rate, Regular Rhythm Lungs: Clear to Ausculations, No Wheeze, No Rhonchi, Diminishe bilateral lower lobes, No increased respiratory effort noted Abdomen: Soft, Non-Distended, Non-Tended, BSx4 Extremities: No Edema, Equal Strength Neurological: No Focal Defects: No sensory or motor deficits noted Psych: Calm and cooperative - Labs CBC & Chem 7: 10/14/18 12:47 10/14/18 12:47 Assessment and Plan Plan: Assessment and Recommendations: IgG [place] Multiple Myeloma - Recent Diagnosis: - Revlimid 15mg PO Daily Days 1-21, q28 and weekly Dexamethasone along with Zometa q6 weeks has been ordered although not started - Will initiate dexamethasone 20mg po x1 today, PPI, and a dose of aredia Hypercalcemia: - Secondary to multiple Myeloma - Aredia x1 today Back/Bone Pain secondary to Metastatic Disease Multiple Myeloma: - Consult has been placed for radiation oncology to evaluate for palliative xrt to spine. - Status Post dexamethasone and aredia x1 Plan: - MRI of spine reviewed, no compression, bony mets - Start Rev when available - XRT palliative - PT/OT - Dex 20mg po Daily x4 days - PPI Rubysharad GALVEZ
[2018-10-16] MEDS ORDERED: DEXAMETHASONE 4 MG TAB PO SCH (19:15)
--- NOTE | 2018-10-16 19:43 | PN ---
PROGRESS NOTE CHIEF COMPLAINT: Multiple myeloma and back pain. HISTORY OF PRESENT ILLNESS: This gentleman is doing fairly well. He is up and about but still has pain. He is going today for MRI of the spine. REVIEW OF SYSTEMS: He has had no fever, chills, shortness of breath, abdominal pain, constipation, etc. PHYSICAL EXAMINATION: Chest is clear. Cardiac exam is normal. The abdomen is flat and soft. Flanks are nontender. Extremities are normal. Neurologically he is intact. IMPRESSION: 1. Multiple myeloma. 2. Coronary artery disease. 3. Chronic obstructive pulmonary disease. 4. Hypertension. PLAN: Await results of MRI, after which treatment plan will be established, and he can probably go home tomorrow. MMODL / IJN: [id number] /
[2018-10-16] MEDS: PANTOPRAZOLE 40 MG TABLET PO SCH (20:56)
[2018-10-17] MEDS: ASPIRIN 81 MG PO SCH (07:54)
[2018-10-17] MEDS: TAMSULOSIN 0.4 MG CAP.ER.24H PO SCH (07:54)
[2018-10-17] MEDS: ISOSORBIDE MONONITRATE ER 30 MG TAB.ER.24H PO SCH (07:54)
[2018-10-17] MEDS: PANTOPRAZOLE 40 MG TABLET PO SCH (07:54)
[2018-10-17] MEDS: METOPROLOL TARTRATE 25 MG TAB PO SCH (07:54)
[2018-10-17] MEDS: MORPHINE SULFATE ER 15 MG TABLET PO SCH (07:55)
[2018-10-17] MEDS: MELOXICAM 7.5 MG TAB PO SCH (08:00)
[2018-10-17] MEDS ORDERED: DEXAMETHASONE 4 MG TAB PO SCH (09:00)
--- NOTE | 2018-10-17 11:08 | PN ---
PROGRESS NOTE CHIEF COMPLAINT: Back pain. HISTORY OF PRESENT ILLNESS: This gentleman's back pain is not getting better. His chemotherapy has been started. He has some loss of appetite. PHYSICAL EXAMINATION: Color is good. Hydration is good. Head, ears, eyes, nose, mouth, and throat are normal. Chest is clear. Cardiac exam is normal. Abdomen is soft, nontender. IMPRESSION: 1. Intractable bone pain. 2. Multiple myeloma. 3. Coronary artery disease. 4. Hypertension. 5. Anorexia. PLAN: Increase analgesia by raising his MS Contin. MMODL / IJN: [id number] /
--- NOTE | 2018-10-17 12:38 | P.PN ---
Subjective Progress Note Date: 10/17/18 Principal diagnosis: Increased pain, inability to ambulate, MM Ok for patient to be discharged from oncology stand point if pain is controlled. Daughter was notpresent. Patient more alert in chair during visit Objective - Vital Signs Vital signs: Vital Signs Temp 98.2 F 10/17/18 05:00 Pulse 68 10/17/18 08:00 Resp 18 10/17/18 08:00 BP 130/66 10/17/18 05:00 Pulse Ox 95 10/17/18 05:00 Intake & Output 10/16/18 10/17/18 10/17/18 18:59 06:59 18:59 Intake Total 480 Balance 480 Intake: Oral 480 Other: Voiding Method Toilet Toilet # Voids 3 1 - Exam General: Alert and Oriented x3, No Acute Distress Head: Normocytic, Atraumatic Neck: Supple Mouth: No Lesions, No Thrush Eyes: Non-sclerotic No Palpable cervical, supraclavicular, axillary adenopathy Heart: Regular Rate, Regular Rhythm Lungs: Clear to Ausculations, No Wheeze, No Rhonchi, Diminishe bilateral lower lobes, No increased respiratory effort noted Abdomen: Soft, Non-Distended, Non-Tended, BSx4 Extremities: No Edema, Equal Strength Neurological: No Focal Defects: No sensory or motor deficits noted Psych: Calm and cooperative - Labs CBC & Chem 7: 10/17/18 13:45 10/17/18 13:45 Assessment and Plan Plan: Assessment and Recommendations: IgG [place] Multiple Myeloma - Recent Diagnosis: - Revlimid 15mg PO Daily Days 1-21, q28 and weekly Dexamethasone along with Zometa q6 weeks has been ordered although not started - Will initiate dexamethasone 20mg po x1 today, PPI, and a dose of aredia Hypercalcemia: - Secondary to multiple Myeloma - Aredia x1 today Back/Bone Pain secondary to Metastatic Disease Multiple Myeloma: - Consult has been placed for radiation oncology to evaluate for palliative xrt to spine. - Status Post dexamethasone and aredia x1 Plan: - MRI of spine reviewed, no compression, bony mets - Start Rev when available - XRT palliative - PT/OT - Dex 20mg po Daily x2 days, no home script needed - PPI - Check CBC and CMP since starting Rev prior to discharge - See Dr. Pearson and Dr. Valverde after D/C Ruby MAYO.
[2018-10-17] MEDS: MORPHINE SULFATE ER 30 MG TABLET PO SCH ×2 (12:56→19:26)
[2018-10-17 13:02] VITALS: BP 91/53; PULSE 64; RESP 16; TEMP 97.7
[2018-10-17] MEDS: HYDROcodone/APAP 5-325MG 1 EACH TAB PO PRN (13:02)
[2018-10-17 14:22] LABS: Basophils % (A) 0 %; Eosinophils # (A) 0.1 k/uL (0-0.7); Eosinophils % (A) 2 %; HCT 28.3 % (39.0-53.0); Hypochromasia Slight; Lymphocytes # (A) 0.3 k/uL (1.0-4.8); Lymphocytes % (A) 11 %; MCH 32.1 pg (25.0-35.0); MCHC 31.7 g/dL (31.0-37.0); MCV 101.2 fL (80.0-100.0); Macrocytosis Slight; Mean Platelet Volume 7.1; Monocytes # (A) 0.1 k/uL (0-1.0); Monocytes % (A) 2 %; Neutrophils # (A) 2.2 k/uL (1.3-7.7); Neutrophils % (A) 84 %; Platelet Count 183 k/uL (150-450); RDW 15.1 % (11.5-15.5); WBC 2.6 k/uL (3.8-10.6)
[2018-10-17 14:32] LABS: Albumin 3.7 g/dL (3.5-5.0); Calcium 8.5 mg/dL (8.4-10.2); Total Bilirubin 0.5 mg/dL (0.2-1.3)
--- NOTE | 2018-10-17 14:40 | P.CONS ---
History of Present Illness - Reason for Consult Consult date: 10/14/18 Multiple myeloma evaluation for radiation Requesting physician: Edgar Lainez - Chief Complaint I have back pain - History of Present Illness Kojo is a pleasant 88-year-old male with a recent diagnoses of multiple myeloma thus far untreated. Laboratory workup revealed evidence of deficiency anemia serum protein electrophoresis and immunofixation did reveal an IgG kappa monoclonal protein spike of 1.84. On 09/19/2018 bone marrow biopsy was performed and positive for sheets of record get monoclonal A light chain restricted cells consistent with multiple myeloma. CT of the thoracic/lumbar/sacral spine on 10/13/18 revealed diffuse, innumerable lytic lesions throughout the visualized skeleton On todays visit his pain is better controlled with morphine. He describes mild lumbar spine pain. Past Medical History Past Medical History: Cancer, GERD/Reflux, Hyperlipidemia, Hypertension, Osteoarthritis (OA), Prostate Disorder Additional Past Medical History / Comment(s): hx. skin cancer w/radiation yrs ago, not sure why having this procedure History of Any Multi-Drug Resistant Organisms: None Reported Past Surgical History: Coronary Bypass/CABG, Joint Replacement, Orthopedic Surgery Additional Past Surgical History / Comment(s): quad. bypass 2009, left knee replaced x2, adam cataracts, shoulder surg. Past Anesthesia/Blood Transfusion Reactions: No Reported Reaction Past Psychological History: No Psychological Hx Reported Smoking Status: Former smoker - Past Family History Mother Family Medical History: Myocardial Infarction ([place]) Father Additional Family Medical History / Comment(s): emphysema,Alzheimer's Medications and Allergies Home Medications Medication Instructions Recorded Confirmed Type Aspirin 81 mg PO DAILY 08/30/15 10/14/18 History Celecoxib [CeleBREX] 200 mg PO BID 08/30/15 10/14/18 History Metoprolol Tartrate [Lopressor] 25 mg PO DAILY 08/30/15 10/14/18 History Simvastatin [Zocor] 20 mg PO HS 08/30/15 10/14/18 History Tamsulosin [Flomax] 0.4 mg PO DAILY 09/18/18 10/14/18 History Cyanocobalamin (Vitamin B-12) 1,000 mcg PO DAILY 10/14/18 10/14/18 History [Vitamin B-12] Ergocalciferol (Vitamin D2) 50,000 unit PO Q28D 10/14/18 10/14/18 History [Vitamin D2] HYDROcodone/APAP 5-325MG [Ethel 1 tab PO Q6H PRN 10/14/18 10/14/18 History 5-325] Isosorbide Mononitrate ER [Imdur] 30 mg PO DAILY 10/14/18 10/14/18 History Lenalidomide [Revlimid] 15 mg PO DIRECTED 10/14/18 10/14/18 History Nitroglycerin Sl Tabs [Nitrostat] 0.4 mg SUBLINGUAL Q5M PRN 10/14/18 10/14/18 History Vitamin B Complex 1 cap PO DAILY 10/14/18 10/14/18 History rOPINIRole HCL [Requip] 0.25 mg PO HS 10/14/18 10/14/18 History traZODone HCL 50 - 100 mg PO HS PRN 10/14/18 10/14/18 History Allergies Allergy/AdvReac Type Severity Reaction Status Date / Time enalapril maleate AdvReac insomnia Verified 10/13/18 20:46 [From Vasotec] enalaprilat dihydrate AdvReac insomnia Verified 10/13/18 20:46 [From Vasotec] cold & sinus medication AdvReac insomnia Uncoded 10/13/18 15:54 Physical Exam Vitals: Vital Signs Temp Pulse Pulse Pulse Resp BP BP 10/14/18 15:32 60 16 10/14/18 15:15 98.2 F 60 16 110/50 10/14/18 12:00 66 16 10/14/18 08:00 98.4 F 66 70 16 121/57 10/14/18 02:15 70 16 10/13/18 23:45 97.9 F 70 14 128/78 10/13/18 22:14 98.3 F 133 H 15 133/69 10/13/18 22:10 70 17 10/13/18 19:27 63 18 162/68 10/13/18 18:01 67 18 177/74 Pulse Ox 10/14/18 15:32 10/14/18 15:15 95 10/14/18 12:00 10/14/18 08:00 95 10/14/18 02:15 10/13/18 23:45 95 10/13/18 22:14 94 L 10/13/18 22:10 10/13/18 19:27 97 10/13/18 18:01 99 Intake and Output 10/14/18 10/14/18 10/14/18 06:59 14:59 22:59 Intake Total 120 10 Output Total 125 Balance -125 120 10 Intake: IV 20 10 Invasive Line 1 20 10 Oral 100 Output: Urine 125 Other: Voiding Method Urinal Urinal Urinal # Voids 2 Weight 65.771 kg Results CBC & Chem 7: 10/14/18 12:47 10/14/18 12:47 Labs: Abnormal Lab Results - Last 24 Hours (Table) 10/13/18 10/13/18 10/13/18 Range/Units 17:42 17:53 19:20 WBC 3.2 L (3.8-10.6) k/uL RBC 2.60 L (4.30-5.90) m/uL Hgb 8.3 L (13.0-17.5) gm/dL Hct 25.6 L (39.0-53.0) % MCV (80.0-100.0) fL RDW (11.5-15.5) % Lymphocytes # (1.0-4.8) k/uL BUN 25 H (9-20) mg/dL Glucose (74-99) mg/dL Calcium 10.4 H (8.4-10.2) mg/dL ALT 18 L (21-72) U/L Total Protein 8.3 H (6.3-8.2) g/dL Urine Protein 1+ H (Negative) Urine Ketones Trace H (Negative) Urine Mucus Rare H (None) /hpf Urine Yeast (Budding) Occasional H (None) /hpf 10/14/18 10/14/18 Range/Units 12:47 12:47 WBC 2.7 L (3.8-10.6) k/uL RBC 2.84 L (4.30-5.90) m/uL Hgb 9.2 L (13.0-17.5) gm/dL Hct 28.4 L (39.0-53.0) % MCV 100.2 H (80.0-100.0) fL RDW 15.6 H (11.5-15.5) % Lymphocytes # 0.8 L (1.0-4.8) k/uL BUN (9-20) mg/dL Glucose 100 H (74-99) mg/dL Calcium (8.4-10.2) mg/dL ALT 15 L (21-72) U/L Total Protein (6.3-8.2) g/dL Urine Protein (Negative) Urine Ketones (Negative) Urine Mucus (None) /hpf Urine Yeast (Budding) (None) /hpf Assessment and Plan Assessment: Multiple Myeloma with innumerable lyic lesions along the spinal axis - Untreated; Revlimid to start as an outpatient - Prednisone 20mg given today - Pain better controlled with morphine. Patient a candidate for palliative xrt to be delivered as an outpatient. Will see Kojo back on 10/16/18. Hypercalcemia: - Secondary to multiple Myeloma - Aredia x1 today Mark Pearson M.D. [phone]
[2018-10-17 14:49] LABS: Potassium 5.1 mmol/L (3.5-5.1)
--- NOTE | 2018-10-21 14:58 | DS ---
DISCHARGE SUMMARY CHIEF COMPLAINT: Severe back pain. HISTORY OF PRESENT ILLNESS AND PHYSICAL EXAM: Details of this man's history and physical can be found in the initial workup. LABORATORY STUDIES: While he was in a hospital he had laboratory studies, details of which can be found in the laboratory section of his chart. COURSE IN HOSPITAL: After admission, he was placed on bedrest, started on intravenous fluids and analgesics. He was seen by Oncology. His pain was related to his multiple myeloma. He had been started on chemotherapy for this and before he came in the hospital, but he not had a chance to initiate the program. This was started while he was in a hospital. His pain was controlled reasonably well. He is doing well enough that he could go home on 10/17. He will follow up in the office with me as well as Oncology and he will be set up with home care. FINAL DIAGNOSES: 1. Intractable back pain. 2. Multiple myeloma. 3. Coronary artery disease.. 4. Chronic obstructive pulmonary disease. 5. Depression. OPERATIONS: None. CONSULTATIONS: Oncology. He is improved. MMODL / FARHADN: [id number] /
== END 2018-10-17 20:09 | disposition home health service (06) | DRG 948 ==
LOC: EC 14:36 → OBSVTOIN 20:25 → 1SOBS 20:25 → 3NMEDONC 10-14 15:50
PROVIDERS: ADMIT Family Medicine; ATTEND Family Medicine
DX: G89.3 Neoplasm related pain (acute) (chronic) (principal); C90.00 Multiple myeloma not having achieved remission; D53.9 Nutritional anemia, unspecified; E78.5 Hyperlipidemia, unspecified; E83.52 Hypercalcemia; I10 Essential (primary) hypertension; I25.10 Atherosclerotic heart disease of native coronary artery without angina pectoris; J44.9 Chronic obstructive pulmonary disease, unspecified; K21.9 Gastro-esophageal reflux disease without esophagitis; Z79.1 Long term (current) use of non-steroidal anti-inflammatories (NSAID); Z79.82 Long term (current) use of aspirin; Z79.899 Other long term (current) drug therapy; Z82.0 Family history of epilepsy and other diseases of the nervous system; Z82.49 Family history of ischemic heart disease and other diseases of the circulatory system; Z82.5 Family history of asthma and other chronic lower respiratory diseases; Z85.828 Personal history of other malignant neoplasm of skin; Z87.891 Personal history of nicotine dependence; Z92.3 Personal history of irradiation; Z95.1 Presence of aortocoronary bypass graft; Z88.8 Allergy status to other drugs, medicaments and biological substances; Z96.652 Presence of left artificial knee joint; Z98.42 Cataract extraction status, left eye; Z98.41 Cataract extraction status, right eye
CPT/HCPCS: 36415; 71046; 72129; 72132; 72157; 72158; 74177; 80053; 81001; 82784; 83605; 85025; 96374; 99285

== ENCOUNTER 2018-10-21 13:19 | Inpatient (IN) | payer MEDICARE ==
[2018-10-21] MEDS ORDERED: MORPHINE SULFATE 4 MG/ML SYRINGE IVP STA (14:35)
[2018-10-21] MEDS ORDERED: SODIUM CHLORIDE 0.9% 500 ML 500 ML IV STA (14:35)
--- NOTE | 2018-10-21 14:42 | ED ---
General Adult HPI - General Chief complaint: Back Pain/Injury Stated complaint: Back pain, abd pain CA PT Time Seen by Provider: 10/21/18 14:00 Source: patient Mode of arrival: wheelchair Limitations: physical limitation - History of Present Illness Initial comments: Patient is a 88-year-old male here with his daughters with complaints of low back pain and abdominal pain. Patient has history of multiple myeloma, on chemo pills, and is currently seeing Dr. Cárdenas. Patient was recently hospitalized for 4 days due to retractable pain. Patient states pain started this morning and his pain medication is not helping. Patient denies any falls or any new injuries since his last visit to the ER. Patient is denying nausea, vomiting. Patient states he has not been able to eat very much or drink. Patient has no other complaints at this time. - Related Data Home Medications Medication Instructions Recorded Confirmed Celecoxib [CeleBREX] 200 mg PO DAILY 08/30/15 10/21/18 Metoprolol Tartrate [Lopressor] 25 mg PO DAILY 08/30/15 10/21/18 Simvastatin [Zocor] 20 mg PO HS 08/30/15 10/21/18 Tamsulosin [Flomax] 0.4 mg PO DAILY 09/18/18 10/21/18 Cyanocobalamin (Vitamin B-12) 1,000 mcg PO DAILY 10/14/18 10/21/18 [Vitamin B-12] HYDROcodone/APAP 5-325MG [[place] 1 tab PO Q6H PRN 10/14/18 10/21/18 5-325] Lenalidomide [Revlimid] 15 mg PO DIRECTED 10/14/18 10/21/18 Nitroglycerin Sl Tabs [Nitrostat] 0.4 mg SUBLINGUAL Q5M PRN 10/14/18 10/21/18 traZODone HCL 50 - 100 mg PO HS PRN 10/14/18 10/21/18 Ascorbic Acid [Vitamin C] 500 mg PO DAILY 10/21/18 10/21/18 Dexamethasone [Hexadrol] 12 mg PO MO 10/21/18 10/21/18 Isosorbide Dinitrate 30 mg PO DAILY 10/21/18 10/21/18 Vitamin E 1,000 unit PO DAILY 10/21/18 10/21/18 Previous Rx's Medication Instructions Recorded Aspirin 81 mg PO DAILY chew 10/17/18 Morphine Sulfate ER [Ms Contin] 30 mg PO Q12HR #60 tablet 10/17/18 Pantoprazole [Protonix] 40 mg PO AC-[id number] tablet. 10/17/18 Allergies Allergy/AdvReac Type Severity Reaction Status Date / Time enalapril maleate AdvReac insomnia Verified 10/21/18 15:07 [From Vasotec] enalaprilat dihydrate AdvReac insomnia Verified 10/21/18 15:07 [From Vasotec] cold & sinus medication AdvReac insomnia Uncoded 10/21/18 13:24 Review of Systems ROS Statement: Those systems with pertinent positive or pertinent negative responses have been documented in the HPI. ROS Other: All systems not noted in ROS Statement are negative. Past Medical History Past Medical History: Cancer, GERD/Reflux, Hyperlipidemia, Hypertension, Osteoarthritis (OA), Prostate Disorder Additional Past Medical History / Comment(s): hx. skin cancer w/radiation yrs ago History of Any Multi-Drug Resistant Organisms: None Reported Past Surgical History: Coronary Bypass/CABG, Joint Replacement, Orthopedic Surgery Additional Past Surgical History / Comment(s): quad. bypass 2010, left knee replaced x2, adam cataracts, shoulder surg. Past Anesthesia/Blood Transfusion Reactions: No Reported Reaction Past Psychological History: No Psychological Hx Reported Smoking Status: Former smoker Past Alcohol Use History: None Reported Past Drug Use History: None Reported - Past Family History Mother Family Medical History: Myocardial Infarction ([place]) Father Additional Family Medical History / Comment(s): emphysema,Alzheimer's General Exam - General Exam Comments Initial Comments: GENERAL: Well-appearing, well-nourished and in no acute distress, but appears uncomfortable. HEAD: Atraumatic, normocephalic. EYES: Pupils equal round and reactive to light, extraocular movements intact, sclera anicteric, conjunctiva are normal. ENT: Nares patent, oropharynx clear without exudates. Moist mucous membranes. NECK: Normal range of motion, supple without lymphadenopathy or JVD. LUNGS: Breath sounds clear to auscultation bilaterally and equal. No wheezes rales or rhonchi. HEART: Regular rate and rhythm without murmurs, rubs or gallops. ABDOMEN: Generalized abdominal tenderness. Soft, normoactive bowel sounds. No guarding, no rebound. No masses appreciated. : Deferred EXTREMITIES: Normal range of motion, no pitting or edema. No clubbing or cyanosis. Low back tenderness throughout the lumbar region. NEUROLOGICAL: Cranial nerves II through XII grossly intact. Normal speech. PSYCH: Normal mood, normal affect. SKIN: Warm, Dry, normal turgor, no rashes or lesions noted. Limitations: physical limitation Course Vital Signs 10/21/18 10/21/18 10/21/18 13:20 16:17 17:44 Temperature 98.4 F 98.7 F Pulse Rate 53 L 53 L 52 L Respiratory 18 16 16 Rate Blood Pressure 159/75 146/71 133/70 O2 Sat by Pulse 98 98 98 Oximetry Medical Decision Making - Medical Decision Making Patient is a 88-year-old male with complaints of low back and abdominal pain since this morning. Patient has history of multiple myeloma currently on chemo pills and sees Dr. Cárdenas. Patient was in the hospital about 3 days ago for same issue. Patient had imaging performed while hospitalized which shows multiple metastases along the lumbar spine and rib area. Patient states his home medication has not been helping with his pain today. Patient's family states he has not been eating and drinking secondary to the pain. Case was discussed with Dr. Robert and patient will be admitted for irretractable pain. Dr. Tapia accepted patient. Patient and family are okay with this plan. Dr. Cárdenas will be consulted. - Lab Data Result diagrams: 10/21/18 15:00 10/21/18 15:00 Lab Results 10/21/18 10/21/18 10/21/18 Range/Units 15:00 15:00 15:00 WBC 4.4 (3.8-10.6) k/uL RBC 3.06 L (4.30-5.90) m/uL Hgb 9.9 L (13.0-17.5) gm/dL Hct 30.7 L (39.0-53.0) % MCV 100.2 H (80.0-100.0) fL MCH 32.2 (25.0-35.0) pg MCHC 32.1 (31.0-37.0) g/dL RDW 15.2 (11.5-15.5) % Plt Count 181 (150-450) k/uL Neutrophils % 71 % Lymphocytes % 21 % Monocytes % 5 % Eosinophils % 1 % Basophils % 0 % Neutrophils # 3.2 (1.3-7.7) k/uL Lymphocytes # 1.0 (1.0-4.8) k/uL Monocytes # 0.2 (0-1.0) k/uL Eosinophils # 0.1 (0-0.7) k/uL Basophils # 0.0 (0-0.2) k/uL Macrocytosis Slight Sodium 136 L (137-145) mmol/L Potassium 4.0 (3.5-5.1) mmol/L Chloride 102 (98-107) mmol/L Carbon Dioxide 27 (22-30) mmol/L Anion Gap 7 mmol/L BUN 35 H (9-20) mg/dL Creatinine 0.92 (0.66-1.25) mg/dL Est GFR (CKD-EPI)AfAm 85 (>60 ml/min/1.73 sqM) Est GFR (CKD-EPI)NonAf 74 (>60 ml/min/1.73 sqM) Glucose 94 (74-99) mg/dL Plasma Lactic Acid Walker 1.4 (0.7-2.0) mmol/L Calcium 8.1 L (8.4-10.2) mg/dL Total Bilirubin 0.6 (0.2-1.3) mg/dL AST 38 (17-59) U/L ALT 47 (21-72) U/L Alkaline Phosphatase 93 (38-126) U/L Total Protein 7.0 (6.3-8.2) g/dL Albumin 3.4 L (3.5-5.0) g/dL Urine Color Urine Appearance (Clear) Urine pH (5.0-8.0) Ur Specific [place] (1.001-1.035) Urine Protein (Negative) Urine Glucose (UA) (Negative) Urine Ketones (Negative) Urine Blood (Negative) Urine Nitrite (Negative) Urine Bilirubin (Negative) Urine Urobilinogen (<2.0) mg/dL Ur Leukocyte Esterase (Negative) 10/21/18 Range/Units 15:30 WBC (3.8-10.6) k/uL RBC (4.30-5.90) m/uL Hgb (13.0-17.5) gm/dL Hct (39.0-53.0) % MCV (80.0-100.0) fL MCH (25.0-35.0) pg MCHC (31.0-37.0) g/dL RDW (11.5-15.5) % Plt Count (150-450) k/uL Neutrophils % % Lymphocytes % % Monocytes % % Eosinophils % % Basophils % % Neutrophils # (1.3-7.7) k/uL Lymphocytes # (1.0-4.8) k/uL Monocytes # (0-1.0) k/uL Eosinophils # (0-0.7) k/uL Basophils # (0-0.2) k/uL Macrocytosis Sodium (137-145) mmol/L Potassium (3.5-5.1) mmol/L Chloride (98-107) mmol/L Carbon Dioxide (22-30) mmol/L Anion Gap mmol/L BUN (9-20) mg/dL Creatinine (0.66-1.25) mg/dL Est GFR (CKD-EPI)AfAm (>60 ml/min/1.73 sqM) Est GFR (CKD-EPI)NonAf (>60 ml/min/1.73 sqM) Glucose (74-99) mg/dL Plasma Lactic Acid Walker (0.7-2.0) mmol/L Calcium (8.4-10.2) mg/dL Total Bilirubin (0.2-1.3) mg/dL AST (17-59) U/L ALT (21-72) U/L Alkaline Phosphatase (38-126) U/L Total Protein (6.3-8.2) g/dL Albumin (3.5-5.0) g/dL Urine Color Yellow Urine Appearance Clear (Clear) Urine pH 6.5 (5.0-8.0) Ur Specific [place] 1.021 (1.001-1.035) Urine Protein Trace H (Negative) Urine Glucose (UA) Negative (Negative) Urine Ketones Negative (Negative) Urine Blood Negative (Negative) Urine Nitrite Negative (Negative) Urine Bilirubin Negative (Negative) Urine Urobilinogen <2.0 (<2.0) mg/dL Ur Leukocyte Esterase Negative (Negative) Disposition Clinical Impression: Hx of multiple myeloma, Intractable pain, Back pain, Rib pain Disposition: ADMITTED IP TO THIS HOSP Condition: Stable Is patient prescribed a controlled substance at d/c from ED?: No Decision Date: 10/21/18 Decision Time: 18:00
[2018-10-21 15:17] LABS: Basophils % (A) 0 %; Eosinophils # (A) 0.1 k/uL (0-0.7); Eosinophils % (A) 1 %; HCT 30.7 % (39.0-53.0); HGB 9.9 gm/dL (13.0-17.5); Lymphocytes % (A) 21 %; MCH 32.2 pg (25.0-35.0); MCHC 32.1 g/dL (31.0-37.0); MCV 100.2 fL (80.0-100.0); Macrocytosis Slight; Mean Platelet Volume 7.5; Monocytes # (A) 0.2 k/uL (0-1.0); Monocytes % (A) 5 %; Neutrophils # (A) 3.2 k/uL (1.3-7.7); Neutrophils % (A) 71 %; Platelet Count 181 k/uL (150-450); RBC 3.06 m/uL (4.30-5.90); RDW 15.2 % (11.5-15.5); WBC 4.4 k/uL (3.8-10.6)
[2018-10-21 15:27] LABS: Albumin 3.4 g/dL (3.5-5.0); Calcium 8.1 mg/dL (8.4-10.2); Total Bilirubin 0.6 mg/dL (0.2-1.3)
[2018-10-21 15:48] LABS: Appearance,Urine Clear (Clear); Bilirubin,Urine Negative (Negative); Blood,Urine Negative (Negative); Color,Urine Yellow; Glucose,Urine (UA) Negative (Negative); Ketones,Urine Negative (Negative); Leukocyte Esterase,Urine Negative (Negative); Nitrite,Urine Negative (Negative); PH, Urine 6.5 (5.0-8.0); Protein,Urine Trace (Negative); Specific Gravity,Urine 1.021 (1.001-1.035); Urobilinogen,Urine <2.0 mg/dL (<2.0)
[2018-10-21] MEDS ORDERED: MORPHINE SULFATE 2 MG/ML SYRINGE IVP ONE (17:03)
[2018-10-21] MEDS ORDERED: ACETAMINOPHEN TAB 325 MG TAB PO PRN (17:57)
[2018-10-21] MEDS ORDERED: ONDANSETRON 4 MG/2 ML VIAL IVP PRN (17:57)
[2018-10-21] MEDS ORDERED: NALOXONE 0.4 MG/ML 1 ML VIAL IV PRN (17:57)
[2018-10-21] MEDS ORDERED: traMADol 50 MG TAB PO PRN (17:57)
[2018-10-21] MEDS ORDERED: MORPHINE SULFATE 4 MG/ML SYRINGE IV PRN (17:57)
[2018-10-21] MEDS: SODIUM CHLORIDE 0.9% 1,000 ML IV SCH (19:06)
[2018-10-21] MEDS ORDERED: NITROGLYCERIN SL TABS 0.4 MG TAB SUBLINGUAL PRN (19:52)
[2018-10-21] MEDS ORDERED: traZODone HCL 50 MG TAB PO PRN (19:52)
[2018-10-21] MEDS ORDERED: HYDROcodone/APAP 7.5-325MG 1 EACH TAB PO PRN (19:57)
[2018-10-21] MEDS ORDERED: MAGNESIUM HYDROXIDE 2,400 MG/10 ML CUP PO PRN (19:58)
[2018-10-21] MEDS: MORPHINE SULFATE ER 15 MG TABLET PO SCH (20:50)
[2018-10-21] MEDS: SENNOSIDES-DOCUSATE SODIUM 1 EACH TAB PO SCH (20:51)
[2018-10-22] MEDS: MORPHINE SULFATE ER 15 MG TABLET PO SCH ×2 (11:58→21:34)
[2018-10-22] MEDS: TAMSULOSIN 0.4 MG CAP.ER.24H PO SCH (11:58)
[2018-10-22] MEDS: SENNOSIDES-DOCUSATE SODIUM 1 EACH TAB PO SCH ×2 (11:58→21:35)
[2018-10-22] MEDS: DEXAMETHASONE 4 MG TAB PO SCH (11:59)
[2018-10-22] MEDS: PANTOPRAZOLE 40 MG TABLET PO SCH (11:59)
[2018-10-22] MEDS: METOPROLOL TARTRATE 25 MG TAB PO SCH (11:59)
[2018-10-22] MEDS: ASPIRIN 81 MG PO SCH (12:05)
[2018-10-22] MEDS: MELOXICAM 7.5 MG TAB PO SCH (12:05)
--- NOTE | 2018-10-22 14:13 | XR ---
EXAMINATION TYPE: XR abdomen complete w decub DATE OF EXAM: 10/22/2018 COMPARISON: Prior exam 10/06/2015 HISTORY: Abdominal pain, constipation TECHNIQUE: Supine, upright, and left side down lateral decubitus views of the abdomen are obtained. FINDINGS: Patient is post median sternotomy. Degenerative disc changes again noted in the visualized spine. Retained fecal debris present throughout the distribution of the colon. Scattered calcificati ons in pelvis likely represent phleboliths. Multiple lucencies present within the bones are too numer ous to count. There is no evidence for pneumoperitoneum. The bowel gas pattern is unremarkable as there is air throughout nondilated small and large bowel. There are some air-fluid levels in the right colon. No mass effects are seen. No unusual calcifications. IMPRESSION: Findings compatible with multiple myeloma. Correlate for fecal stasis.
[2018-10-22 15:20] VITALS: BMI 22.9
--- NOTE | 2018-10-22 15:31 | PN ---
PROGRESS NOTE DATE OF SERVICE: 10/21/2016 CHIEF COMPLAINT: Back pain. HISTORY OF PRESENT ILLNESS: This gentleman's pain continues and his program is being increased. PHYSICAL EXAM: He is slightly pale. Breath sounds are clear bilaterally and the cardiac exam is normal. Abdomen is soft. IMPRESSION: 1. Dorsal spine pain, secondary to multiple myeloma. PLAN: 1. Continue treating for myeloma. 2. Consult Oncology. 3. Increase morphine as needed to help control pain. He can probably go home and have this done as an outpatient. MMODL / IJN: [id number] /
--- NOTE | 2018-10-22 15:31 | HP ---
HISTORY AND PHYSICAL CHIEF COMPLAINT: Intractable back pain. HISTORY OF PRESENT ILLNESS: This is another recent admission for this 88-year-old white male. He recently diagnosed with multiple myeloma. He was sent home on morphine, but the pain continued to be fairly severe and he came back to the emergency room. He is admitted for pain control. He has had no vomiting, fever, chills, neurologic problems, etc. REVIEW OF SYSTEMS: All otherwise unremarkable or unchanged. PHYSICAL EXAM: Blood pressure is 138/74 with a pulse of 84, respirations of 30, he is afebrile. In general, he appeared to be pale and chronically ill. Head, ears, eyes, nose, mouth, and throat were normal and the chest is clear. Cardiac exam is normal. There are no murmurs or extra sounds. The abdomen is soft. Extremities are normal. Neurologically, he is intact. IMPRESSION: 1. Intractable back pain, secondary to multiple myeloma. 2. Coronary artery disease. 3. Chronic obstructive pulmonary disease. 4. Depression. PLAN: Increase his analgesic program and he can probably go back home anytime once he is cleared by Oncology. MMODL / IJN: [id number] /
--- NOTE | 2018-10-22 16:46 | P.CONS ---
History of Present Illness - Reason for Consult Consult date: 10/22/18 treatment for IGgMM, intractable abd pain Requesting physician: Fabby Hazel - Chief Complaint intactable abd/back pain - History of Present Illness Mr. Vega is a very pleasant male pt of Dr. Valverde referred because of pancytopenia found during routine blood work. 07/28/18 CBC revealed total wbc of 3.5K, normal diff, hemoglobin of 10.1gm/dl, platelets counts of 203K. 07/21/18 CMP revealed creatinine of 1.27, PSA was 14.2, normal thyroid panel. His PSA was 3.6 in 2016 and was 1.0 in 05/2015. 08/05/18 lab work up revealed no evidence of deficiency, SPEP and immunofixation revealed IgG kappa monoclonal protein, M-spike 1.84gm/dl, NM bone scan 09/03/18 negative for visible involvement with disease, 09/19/18 bone marrow biopsy was positive for kappa lig ht chain multiple myeloma, normal cytogenetics, skeletal bone survey revealed multiple punched out lesions. 10/13/18 MRI of lumbar spine revealed multiple lytic lesions, no soft tissue mass or cord compression. He started low dose Rev/Dex regimen, on 10/15/18, he was also given pamidronate inpatient on 10/14/18 for hypercalcemia. He was seen [address] Valverde. He c/o fatigue, back pain, left sided rib pain (MS contin and norco), weakness, poor appetite, using walker or wheelchair. He is in hospital for intractable and pain, band around the middle of the abd, persistent, he thinks his last BM was 1 week ago, he is unable to tell me what meds he has been taking, can't remember his medical history, states poor appetite, staff states he has ate 75% of all his meals. Review of Systems 14 point ROS is as stated in HPI, pt unable to give me any history Past Medical History Past Medical History: Cancer, GERD/Reflux, Hyperlipidemia, Hypertension, Osteoarthritis (OA), Prostate Disorder Additional Past Medical History / Comment(s): hx. skin cancer w/radiation yrs ago History of Any Multi-Drug Resistant Organisms: None Reported Past Surgical History: Coronary Bypass/CABG, Joint Replacement, Orthopedic Surgery Additional Past Surgical History / Comment(s): quad. bypass 2009, left knee replaced x2, adam cataracts, shoulder surg. Past Anesthesia/Blood Transfusion Reactions: No Reported Reaction Past Psychological History: No Psychological Hx Reported Smoking Status: Former smoker Past Alcohol Use History: None Reported Past Drug Use History: None Reported - Past Family History Mother Family Medical History: Myocardial Infarction ([place]) Father Additional Family Medical History / Comment(s): emphysema,Alzheimer's Medications and Allergies Home Medications Medication Instructions Recorded Confirmed Type Celecoxib [CeleBREX] 200 mg PO DAILY 08/30/15 10/21/18 History Metoprolol Tartrate [Lopressor] 25 mg PO DAILY 08/30/15 10/21/18 History Simvastatin [Zocor] 20 mg PO HS 08/30/15 10/21/18 History Tamsulosin [Flomax] 0.4 mg PO DAILY 09/18/18 10/21/18 History Cyanocobalamin (Vitamin B-12) 1,000 mcg PO DAILY 10/14/18 10/21/18 History [Vitamin B-12] HYDROcodone/APAP 5-325MG [[place] 1 tab PO Q6H PRN 10/14/18 10/21/18 History 5-325] Lenalidomide [Revlimid] 15 mg PO DIRECTED 10/14/18 10/21/18 History Nitroglycerin Sl Tabs [Nitrostat] 0.4 mg SUBLINGUAL Q5M PRN 10/14/18 10/21/18 History traZODone HCL 50 - 100 mg PO HS PRN 10/14/18 10/21/18 History Aspirin 81 mg PO DAILY chew 10/17/18 10/21/18 Rx Morphine Sulfate ER [Ms Contin] 30 mg PO Q12HR #60 tablet 10/17/18 10/21/18 Rx Pantoprazole [Protonix] 40 mg PO AC-BRKFST tablet. 10/17/18 10/21/18 Rx Ascorbic Acid [Vitamin C] 500 mg PO DAILY 10/21/18 10/21/18 History Dexamethasone [Hexadrol] 12 mg PO MO 10/21/18 10/21/18 History Isosorbide Dinitrate 30 mg PO DAILY 10/21/18 10/21/18 History Vitamin E 1,000 unit PO DAILY 10/21/18 10/21/18 History Allergies Allergy/AdvReac Type Severity Reaction Status Date / Time enalapril maleate AdvReac insomnia Verified 10/21/18 15:07 [From Vasotec] enalaprilat dihydrate AdvReac insomnia Verified 10/21/18 15:07 [From Vasotec] cold & sinus medication AdvReac insomnia Uncoded 10/21/18 13:24 Physical Exam Vitals: Vital Signs Temp Pulse Pulse Resp BP BP Pulse Ox 10/22/18 05:00 97.6 F 63 16 117/64 97 10/21/18 23:11 64 16 10/21/18 21:56 97.7 F 64 16 121/64 97 10/21/18 19:08 98 F 56 L 16 137/78 98 10/21/18 17:44 98.7 F 52 L 16 133/70 98 10/21/18 16:17 53 L 16 146/71 98 10/21/18 13:20 98.4 F 53 L 18 159/75 98 Intake and Output 10/21/18 10/22/18 10/22/18 22:59 06:59 14:59 Intake Total 540 450 Balance 540 450 Intake: Intake, IV Titration 120 210 Amount Sodium Chloride 0.9% 1, 120 210 000 ml @ 30 mls/hr IV . Q24H [facility] Rx#:[id number] Oral 420 240 Other: Voiding Method Toilet # Voids 2 - Constitutional General appearance: average body habitus, cooperative, no acute distress - EENT Eyes: anicteric sclerae, EOMI ENT: hearing grossly normal, normal oropharynx - Neck Neck: no lymphadenopathy - Respiratory Respiratory: bilateral: CTA - Cardiovascular Heart sounds: normal: S1, S2 leg Peripheral Edema: bilateral: None - Gastrointestinal General gastrointestinal: normal bowel sounds, soft, tenderness - Integumentary Integumentary: pale - Neurologic Neurologic: CNII-XII intact - Musculoskeletal Musculoskeletal: generalized weakness - Psychiatric cannot give me any details of his meds or medical history Psychiatric: A&O x's 3, appropriate affect Results CBC & Chem 7: 10/21/18 15:00 10/21/18 15:00 Labs: Abnormal Lab Results - Last 24 Hours (Table) 10/21/18 10/21/18 10/21/18 Range/Units 15:00 15:00 15:30 RBC 3.06 L (4.30-5.90) m/uL Hgb 9.9 L (13.0-17.5) gm/dL Hct 30.7 L (39.0-53.0) % MCV 100.2 H (80.0-100.0) fL Sodium 136 L (137-145) mmol/L BUN 35 H (9-20) mg/dL Calcium 8.1 L (8.4-10.2) mg/dL Albumin 3.4 L (3.5-5.0) g/dL Urine Protein Trace H (Negative) Abdominal x-ray: report reviewed Assessment and Plan (1) Abdominal pain Narrative/Plan: Abd xray ordered-fecal stasis. Senna/ducosate 2tabs BID and enema ordered. Suspect narcotic induced. Will cont bowel regimen Pain meds ordered as prescribed from home. Anticipate some relief once BM Current Visit: Yes Status: Acute Priority: High Code(s): R10.9 - UNSPECIFIED ABDOMINAL PAIN SNOMED Code(s): 72022317 (2) Constipation Narrative/Plan: Multiple meds ordered Srtict I&O Current Visit: Yes Status: Acute Priority: High Code(s): K59.00 - CONSTIPATION, UNSPECIFIED SNOMED Code(s): 16531144 (3) Back pain Narrative/Plan: Rad Onc consult Pain meds Current Visit: Yes Status: Acute Priority: High Code(s): M54.9 - DORSALGIA, UNSPECIFIED SNOMED Code(s): 979682018 (4) Hx of multiple myeloma Narrative/Plan: On low dose Revlimid 15mg days 1-21 Q 28 days, weekly Dex, 12mg, zometa Q 6 weeks. Pt cannot tell me where he was in his cycle. Will have to check with family. Radiation consulted for painful bone mets Current Visit: Yes Status: Acute Priority: High Code(s): Z85.79 - PRSNL HX OF MALIG NEOPLM OF LYMPHOID, HEMATPOETC & REL TISS SNOMED Code(s): 369091185510105 (5) Cachexia Narrative/Plan: Dietitian Strict intake documentation Possible appetite stimulant Current Visit: Yes Status: Acute Priority: High Code(s): R64 - CACHEXIA SNOMED Code(s): 443938587
[2018-10-22] MEDS ORDERED: NA PHOS,M-B/NA PHOS,DI-BA 133 ML ENEMA RECTAL ONE (19:00)
[2018-10-22] MEDS: SODIUM CHLORIDE 0.9% 1,000 ML IV SCH (21:33)
[2018-10-23] MEDS: SENNOSIDES-DOCUSATE SODIUM 1 EACH TAB PO SCH ×2 (08:39→21:24)
[2018-10-23] MEDS: METOPROLOL TARTRATE 25 MG TAB PO SCH (08:39)
[2018-10-23] MEDS: ASPIRIN 81 MG PO SCH (08:39)
[2018-10-23] MEDS: PANTOPRAZOLE 40 MG TABLET PO SCH (08:39)
[2018-10-23] MEDS: DEXAMETHASONE 4 MG TAB PO SCH (08:39)
[2018-10-23] MEDS: MELOXICAM 7.5 MG TAB PO SCH (08:39)
[2018-10-23] MEDS: TAMSULOSIN 0.4 MG CAP.ER.24H PO SCH (08:39)
[2018-10-23] MEDS: MORPHINE SULFATE ER 15 MG TABLET PO SCH ×2 (08:40→21:25)
--- NOTE | 2018-10-23 09:37 | P.PN ---
Subjective Progress Note Date: 10/23/18 Principal diagnosis: Intractable abdominal pain, suspect constipation. Multiple myeloma, started Revlimid 1 week ago. In follow-up today patient is again not straightforward in his answers, when asked about his pain he says it's across the middle of his abdomen, he states that he is not able to rate his pain on the pain scale, he cannot define aggravating or alleviating factors, on chart review patient has not used any breakthrough pain medication, he is only on his scheduled pain medication. Patient states very poor appetite and not eating despite a stable weight and ac tual slight weight gain from his last visit. Staff has also confirmed patient is eating more than 50% of his meals. Objective - Vital Signs Vital signs: Vital Signs Temp 97.6 F 10/23/18 04:23 Pulse 56 L 10/23/18 04:23 Resp 16 10/23/18 04:23 BP 147/63 10/23/18 04:23 Pulse Ox 97 10/23/18 04:23 Intake & Output 10/22/18 10/23/18 10/23/18 18:59 06:59 18:59 Intake Total 870 630 Balance 870 630 Weight 72.575 kg Intake: Intake, IV Titration 220 210 Amount Sodium Chloride 0.9% 1, 220 210 000 ml @ 30 mls/hr IV . Q24H [facility] Rx#:[id number] Oral 650 420 Other: Voiding Method Toilet Toilet Toilet # Voids 3 3 # Bowel Movements 1 - Exam Patient is sitting in the chair, he is smiling today during our discussion - Constitutional General appearance: Present: cooperative, no acute distress - EENT Eyes: Present: anicteric sclerae, EOMI ENT: Present: normal oropharynx - Respiratory Respiratory: bilateral: CTA - Cardiovascular Heart sounds: normal: S1, S2 - Peripheral edema leg Peripheral Edema: bilateral: None - Gastrointestinal Gastrointestinal Comment(s): Firmness palpated around the umbilicus, not rigid, patient does not respond as though palpation causes severe pain. - Integumentary Integumentary: Present: pale - Neurologic Neurologic: Present: CNII-XII intact - Musculoskeletal Musculoskeletal: Present: generalized weakness, strength equal bilaterally - Psychiatric Psychiatric: Present: A&O x's 3, appropriate affect - Labs CBC & Chem 7: 10/21/18 15:00 10/21/18 15:00 Assessment and Plan (1) Abdominal pain Narrative/Plan: Abd xray ordered-fecal stasis. Senna/ducosate 2tabs BID and enema ordered. Suspect narcotic induced. Patient was not able to describe any relief of his abdominal discomfort after having a small bowel movement. One-time dose of milk of magnesia to be added today. Pain meds ordered as prescribed from home. Did encourage nursing to offer patient his breakthrough pain medication as prescribed, staff denies patient complaining of pain. Current Visit: Yes Status: Acute Priority: High Code(s): R10.9 - UNSPECIFIED ABDOMINAL PAIN SNOMED Code(s): 68912105 (2) Constipation Narrative/Plan: Multiple meds ordered Srtict I&O Current Visit: Yes Status: Acute Priority: High Code(s): K59.00 - CONSTIPATION, UNSPECIFIED SNOMED Code(s): 06191473 (3) Back pain Current Visit: Yes Status: Acute Priority: High Code(s): M54.9 - DORSALGIA, UNSPECIFIED SNOMED Code(s): 096420270 (4) Hx of multiple myeloma Narrative/Plan: On low dose Revlimid 15mg days 1-21 Q 28 days, weekly Dex, 12mg, zometa Q 6 weeks. Medications were brought in. Patient is one week into his Revlimid dosing, he was given his weekly dose of dexamethasone yesterday. He is not requiring Zometa for 5 more weeks. Radiation seen patient today for evaluation of pain that could be related to multiple myeloma bone lesions. We will await their recommendations Current Visit: Yes Status: Acute Priority: High Code(s): Z85.79 - PRSNL HX OF MALIG NEOPLM OF LYMPHOID, HEMATPOETC & REL TISS SNOMED Code(s): 802374051998940 (5) Cachexia Narrative/Plan: Dietitian-pending evaluation and recommendation, consult did not get put in until evening of 10/23 Strict intake documentation, patient is eating his meals. No weight loss since last visit, small weight gain noted. Current Visit: Yes Status: Acute Priority: High Code(s): R64 - CACHEXIA SNOMED Code(s): 852764870
[2018-10-23] MEDS ORDERED: MAGNESIUM HYDROXIDE 2,400 MG/10 ML CUP PO STA (09:40)
[2018-10-23] MEDS ORDERED: PROCHLORPERAZINE 10 MG TAB PO PRN (10:13)
--- NOTE | 2018-10-23 12:18 | PN ---
PROGRESS NOTE CHIEF COMPLAINT: Intractable back pain and multiple myeloma. HISTORY OF PRESENT ILLNESS: This gentleman states his pain is not any better. He is not sure about his treatment plan or discharge expectations. He is having some trouble with hiccups. PHYSICAL EXAM: His chest is clear. The cardiac exam is normal and the abdomen is soft, nontender. IMPRESSION: 1. Intractable dorsal spine pain due to multiple myeloma. 2. Coronary artery disease. 3. Chronic obstructive pulmonary disease. 4. Hiccups. PLAN: 1. Compazine 10 mg q.6 p.r.n. hiccups. 2. Await further plans from Oncology. MMODL / IJN: [id number] /
--- NOTE | 2018-10-23 13:12 | P.PN ---
Subjective Progress Note Date: 10/23/18 Principal diagnosis: Multiple myeloma, pain The patient is an 88-year-old male with a history of multiple myeloma diagnosed just last month. Initial staging studies revealed numerous small lytic lesions throughout the axial and appendicular skeleton. The patient started Revlimid just 1 week prior. He was planning to follow-up as an outpatient with our clinic after being evaluated by Dr. Pearson. He now presented with return to the ER secondary to abdominal and back pain. The patient is currently reporting pain in the lower anterior abdomen. He reports this pain has been present for some time. It typically radiates all the way to his back. He notes that he has not had a bowel movement for the past week. He was given an enema last night, and had some small loose stool output. The patient is currently on 45 mg of MS Contin twice a day. It does not appear he has been requesting PRN pain medication from nursing. The patient has no difficulty with lack of bladder or bowel control. During his prior hospitalization, an MRI of the entire spine showed no evidence of cord compression or soft tissue extension. Objective - Vital Signs Vital signs: Vital Signs Temp 97.6 F 10/23/18 11:48 Pulse 52 L 10/23/18 11:48 Resp 15 10/23/18 11:48 BP 121/58 10/23/18 11:48 Pulse Ox 96 10/23/18 11:48 Intake & Output 10/22/18 10/23/18 10/23/18 18:59 06:59 18:59 Intake Total 870 630 Balance 870 630 Weight 72.575 kg Intake: Intake, IV Titration 220 210 Amount Sodium Chloride 0.9% 1, 220 210 000 ml @ 30 mls/hr IV . Q24H [facility] Rx#:[id number] Oral 650 420 Other: Voiding Method Toilet Toilet Toilet # Voids 3 3 # Bowel Movements 1 - EENT Eyes: Present: EOMI, PERRLA ENT: Present: hearing grossly normal - Neck Neck: Absent: lymphadenopathy - Respiratory Respiratory: bilateral: CTA - Cardiovascular Rhythm: regular - Gastrointestinal General gastrointestinal: Present: normal bowel sounds (Abdomen firm, non- rigid). Absent: tenderness - Integumentary Integumentary: Absent: calor, cellulitis - Neurologic Neurologic: Present: CNII-XII intact - Musculoskeletal Musculoskeletal: Present: generalized weakness - Psychiatric Psychiatric: Present: A&O x's 3, appropriate affect - Labs CBC & Chem 7: 10/21/18 15:00 10/21/18 15:00 - Imaging and Cardiology Abdominal x-ray: report reviewed, image reviewed Assessment and Plan Plan: The patient is an 88-year-old male with a history of multiple myeloma diagnosed just last month. Initial staging studies revealed numerous small lytic lesions throughout the axial and appendicular skeleton. The patient started Revlimid just 1 week prior. He was planning to follow-up as an outpatient with our clinic after being evaluated by Dr. Pearson. He now presented with return to the ER secondary to abdominal and back pain. 1. Pain: Mostly abdominal, may relate to constipation. Describes bony pains as "aches all over" but non-focal. Poor historian. No urgent need for radiotherapy. 2. Myeloma: Patient currently on Revlimid/Dex. Will follow with Dr. Valverde. We will arrange for outpatient follow-up. Time with Patient: Less than 30
[2018-10-23] MEDS: SODIUM CHLORIDE 0.9% 1,000 ML IV SCH (21:26)
[2018-10-24] MEDS: METOPROLOL TARTRATE 25 MG TAB PO SCH (09:00)
[2018-10-24] MEDS: TAMSULOSIN 0.4 MG CAP.ER.24H PO SCH (09:01)
[2018-10-24] MEDS: ASPIRIN 81 MG PO SCH (09:01)
[2018-10-24] MEDS: MELOXICAM 7.5 MG TAB PO SCH (09:01)
[2018-10-24] MEDS: SENNOSIDES-DOCUSATE SODIUM 1 EACH TAB PO SCH ×2 (09:01→20:26)
[2018-10-24] MEDS: PANTOPRAZOLE 40 MG TABLET PO SCH (09:01)
[2018-10-24] MEDS: MORPHINE SULFATE ER 15 MG TABLET PO SCH ×2 (09:02→20:26)
--- NOTE | 2018-10-24 11:05 | DS ---
DISCHARGE SUMMARY CHIEF COMPLAINT: Intractable back pain and multiple myeloma. HISTORY OF PRESENT ILLNESS AND PHYSICAL EXAM: Details of this man's history and physical can be found in the initial workup. LABORATORY STUDIES: While he was in a hospital he had laboratory studies, details of which can be found in the laboratory section of his chart. COURSE IN HOSPITAL: After admission he was placed on bedrest, started on intravenous fluids and analgesics. He was seen by Radiation Therapy and Oncology. In the hospital, he developed some problems with hiccups and he was given Compazine for this. It was felt that he was stable enough to go home and arrangements were being made with home care to follow both him and his at home. He will go home on activity as tolerated. He will be seen in several days. FINAL DIAGNOSES: 1. Intractable back pain due to multiple myeloma. 2. Chronic obstructive pulmonary disease. 3. Coronary artery disease. 4. Constipation. 5. Depression. OPERATIONS: None. CONSULTATIONS: Oncology and Radiation Therapy. He is improved. MMODL / IJN: [id number] /
[2018-10-24] MEDS: SODIUM CHLORIDE 0.9% 1,000 ML IV SCH (20:05)
[2018-10-25] MEDS: MORPHINE SULFATE ER 15 MG TABLET PO SCH ×2 (09:32→19:51)
[2018-10-25] MEDS: SENNOSIDES-DOCUSATE SODIUM 1 EACH TAB PO SCH ×2 (09:33→19:52)
[2018-10-25] MEDS: ASPIRIN 81 MG PO SCH (09:33)
[2018-10-25] MEDS: METOPROLOL TARTRATE 25 MG TAB PO SCH (09:33)
[2018-10-25] MEDS: TAMSULOSIN 0.4 MG CAP.ER.24H PO SCH (09:33)
[2018-10-25] MEDS: PANTOPRAZOLE 40 MG TABLET PO SCH (09:33)
[2018-10-25] MEDS: MELOXICAM 7.5 MG TAB PO SCH (09:35)
--- NOTE | 2018-10-25 14:25 | PN ---
PROGRESS NOTE CHIEF COMPLAINT: Multiple myeloma. HISTORY OF PRESENT ILLNESS: This gentleman was supposed to have been discharged yesterday. Apparently, the family could not pick him up. There has been no interval change in his symptoms and he is expected to go home today. MMSWEETIE / AYALA: [id number] /
[2018-10-25] MEDS: SODIUM CHLORIDE 0.9% 1,000 ML IV SCH (16:44)
[2018-10-26] MEDS: PANTOPRAZOLE 40 MG TABLET PO SCH (07:45)
[2018-10-26] MEDS: METOPROLOL TARTRATE 25 MG TAB PO SCH (08:10)
[2018-10-26] MEDS: ASPIRIN 81 MG PO SCH (08:11)
[2018-10-26] MEDS: SENNOSIDES-DOCUSATE SODIUM 1 EACH TAB PO SCH ×2 (08:11→20:31)
[2018-10-26] MEDS: TAMSULOSIN 0.4 MG CAP.ER.24H PO SCH (08:11)
[2018-10-26] MEDS: MORPHINE SULFATE ER 15 MG TABLET PO SCH ×2 (08:30→20:31)
[2018-10-26] MEDS: MELOXICAM 7.5 MG TAB PO SCH (08:32)
[2018-10-26] MEDS: SODIUM CHLORIDE 0.9% 1,000 ML IV SCH (17:11)
--- NOTE | 2018-10-26 19:27 | PN ---
PROGRESS NOTE DATE OF SERVICE: 10/26/2018. CHIEF COMPLAINT: Back pain and multiple myeloma. HISTORY OF PRESENT ILLNESS: This gentleman was not picked up by his family on Saturday or yesterday. Reason is not clear. He has been referred for discharge planning. PHYSICAL EXAM: Unchanged. IMPRESSION: 1. Intractable back pain from multiple myeloma. 2. Coronary artery disease. 3. Chronic obstructive pulmonary disease. PLAN: Await discharge plan. MMODL / IJN: [id number] /
[2018-10-26 20:51] VITALS: RESP 18; TEMP 98.9
[2018-10-27 04:40] VITALS: BP 128/60; PULSE 78
[2018-10-27] MEDS: MELOXICAM 7.5 MG TAB PO SCH (08:35)
[2018-10-27] MEDS: SENNOSIDES-DOCUSATE SODIUM 1 EACH TAB PO SCH (08:35)
[2018-10-27] MEDS: PANTOPRAZOLE 40 MG TABLET PO SCH (08:35)
[2018-10-27] MEDS: ASPIRIN 81 MG PO SCH (08:35)
[2018-10-27] MEDS: METOPROLOL TARTRATE 25 MG TAB PO SCH (08:35)
[2018-10-27] MEDS: TAMSULOSIN 0.4 MG CAP.ER.24H PO SCH (08:35)
[2018-10-27] MEDS: MORPHINE SULFATE ER 15 MG TABLET PO SCH (08:36)
[2018-10-27] MEDS ORDERED: DEXAMETHASONE 4 MG TAB PO STA (09:49)
--- NOTE | 2018-10-27 14:25 | P.PN ---
Subjective Progress Note Date: 10/27/18 Principal diagnosis: Intractable abdominal pain, suspect constipation. Multiple myeloma, started Revlimid 2 weeks ago. In f/u pt pt response to my questions is "I have no idea what is going on", when I ask him if he is in pain he states "always", "all over". Objective - Vital Signs Vital signs: Vital Signs Temp 98.9 F 10/27/18 04:40 Pulse 78 10/27/18 04:40 Resp 18 10/27/18 04:40 BP 128/60 10/27/18 04:40 Pulse Ox 97 10/27/18 04:40 Intake & Output 10/26/18 10/27/18 10/27/18 18:59 06:59 18:59 Weight 72.575 kg Other: Voiding Method Toilet # Voids 3 - Constitutional General appearance: Present: no acute distress, thin - EENT Eyes: Present: anicteric sclerae ENT: Present: hearing grossly normal - Respiratory Details: respirations even and unlabored - Cardiovascular Details: skin warm and dry, no lower extremity swelling - Gastrointestinal General gastrointestinal: Present: soft - Integumentary Integumentary: Present: pale - Neurologic Neurologic: Present: CNII-XII intact - Musculoskeletal Musculoskeletal: Present: generalized weakness - Psychiatric Psychiatric Comment(s): easily aroused, once alert he is oriented to name and place Psychiatric: Absent: intact judgment & insight - Labs CBC & Chem 7: 10/21/18 15:00 10/21/18 15:00 Assessment and Plan (1) Abdominal pain Narrative/Plan: Pt has had several BMs, he does not seem to c/o as much abd pain, he did not discuss abd pain specifically today when questioned about pain Pain meds ordered as prescribed from home. Did encourage nursing to offer patient his breakthrough pain medication as prescribed, he has only used a mobic today Current Visit: Yes Status: Acute Priority: High Code(s): R10.9 - UNSPECIFIED ABDOMINAL PAIN SNOMED Code(s): 09234793 (2) Constipation Narrative/Plan: Several BMs since admit Current Visit: Yes Status: Resolved Priority: High Code(s): K59.00 - CONSTIPATION, UNSPECIFIED SNOMED Code(s): 46556336 (3) Back pain Narrative/Plan: Rad Onc seen pt, was not felt that back pain was actually pt c/o. They remain available if needed Pain meds ongoing. Close monitoring of BM and meds to prevent narcotic induced constipation Current Visit: Yes Status: Acute Priority: High Code(s): M54.9 - DORSA LGIA, UNSPECIFIED SNOMED Code(s): 202432393 (4) Hx of multiple myeloma Narrative/Plan: On low dose Revlimid 15mg days 1-21 Q 28 days-he is in week 2, weekly Dex, 12mg, on Mondays-one time dose given today, and zometa Q 6 weeks not due for at least 4 weeks. Cont current meds as long as pt is able. Rad Onc available for palliative treatment of painful bone mets if it becomes a problem that cannot be controlled with meds Current Visit: Yes Status: Acute Priority: High Code(s): Z85.79 - PRSNL HX OF MALIG NEOPLM OF LYMPHOID, HEMATPOETC & REL TISS SNOMED Code(s): 466329348273279 (5) Cachexia Narrative/Plan: Wt stable since admit. Encouraged requesting favorite foods, snacking. Seen by Dietitian, supplements ordered Current Visit: Yes Status: Acute Priority: High Code(s): R64 - CACHEXIA SNOMED Code(s): 384426925 Plan: Unsure if pt is going to be able to return home. If pt requires placement we will have to discuss myeloma treatment as this may have to be stopped. We will wait for final plan and talk with Route [employer] Delivery Drivers Supervisor
== END 2018-10-27 14:40 | disposition home health service (06) | DRG 948 ==
LOC: EC 13:19 → 3NMEDONC 17:55
PROVIDERS: ADMIT Family Medicine; ATTEND Family Medicine
DX: G89.3 Neoplasm related pain (acute) (chronic) (principal); C90.00 Multiple myeloma not having achieved remission; R64 Cachexia; J44.9 Chronic obstructive pulmonary disease, unspecified; I25.10 Atherosclerotic heart disease of native coronary artery without angina pectoris; K21.9 Gastro-esophageal reflux disease without esophagitis; E78.5 Hyperlipidemia, unspecified; I10 Essential (primary) hypertension; M19.90 Unspecified osteoarthritis, unspecified site; N42.9 Disorder of prostate, unspecified; K59.00 Constipation, unspecified; R06.6 Hiccough; F32.9 Major depressive disorder, single episode, unspecified; Z79.82 Long term (current) use of aspirin; Z79.1 Long term (current) use of non-steroidal anti-inflammatories (NSAID); Z79.899 Other long term (current) drug therapy; Z79.891 Long term (current) use of opiate analgesic; Z79.52 Long term (current) use of systemic steroids; Z85.828 Personal history of other malignant neoplasm of skin; Z92.3 Personal history of irradiation; Z95.1 Presence of aortocoronary bypass graft; Z96.652 Presence of left artificial knee joint; Z98.42 Cataract extraction status, left eye; Z98.41 Cataract extraction status, right eye; Z87.891 Personal history of nicotine dependence; Z88.8 Allergy status to other drugs, medicaments and biological substances; Z82.49 Family history of ischemic heart disease and other diseases of the circulatory system; Z82.5 Family history of asthma and other chronic lower respiratory diseases; Z82.0 Family history of epilepsy and other diseases of the nervous system
CPT/HCPCS: 36415; 74021; 80053; 81003; 83605; 85025; 96361; 96374; 96376; 99285

== ENCOUNTER 2018-11-10 11:58 | Inpatient (IN) | payer MEDICARE ==
[2018-11-10] MEDS ORDERED: PANTOPRAZOLE 40 MG/10 ML VIAL IVP STA (12:31)
[2018-11-10] MEDS ORDERED: SODIUM CHLORIDE 0.9% 1,000 ML IV STA (12:31)
--- NOTE | 2018-11-10 12:34 | ED ---
General Adult HPI - General Chief complaint: GI Bleed Stated complaint: Rectal Bleeding Time Seen by Provider: 11/10/18 12:15 Source: patient, family, RN notes reviewed Mode of arrival: wheelchair Limitations: no limitations - History of Present Illness Initial comments: Patient is a pleasant 88-year-old male presenting to the emergency Department with complaints of GI bleeding. Onset of symptoms was around 3 AM. Patient has had a couple of episodes of bright red blood. Patient is a somewhat poor historian. Family helps provide history somewhat. Patient does have some abdominal cramping prior to bowel movements. Patient has history of interm ittent constipation and diarrhea especially over the past several days. Patient has a known history of multiple myeloma and is under chemotherapy however is currently in between treatments. Last was 1 week ago. Patient denies any increase in fatigue or weakness. Patient has chronic pain that is unchanged. - Related Data Home Medications Medication Instructions Recorded Confirmed Celecoxib [CeleBREX] 200 mg PO DAILY 08/30/15 11/10/18 Metoprolol Tartrate [Lopressor] 25 mg PO DAILY 08/30/15 11/10/18 Simvastatin [Zocor] 20 mg PO HS 08/30/15 11/10/18 Tamsulosin [Flomax] 0.4 mg PO HS 09/18/18 11/10/18 Cyanocobalamin (Vitamin B-12) 1,000 mcg PO DAILY 10/14/18 11/10/18 [Vitamin B-12] HYDROcodone/APAP 5-325MG [[place] 1 tab PO Q6H PRN 10/14/18 11/10/18 5-325] Lenalidomide [Revlimid] 15 mg PO DIRECTED 10/14/18 11/10/18 Nitroglycerin Sl Tabs [Nitrostat] 0.4 mg SUBLINGUAL Q5M PRN 10/14/18 11/10/18 Ascorbic Acid [Vitamin C] 500 mg PO DAILY 10/21/18 11/10/18 Dexamethasone [Hexadrol] 4 mg PO BID@0800,1200 10/21/18 11/10/18 Isosorbide Dinitrate 30 mg PO DAILY 10/21/18 11/10/18 Vitamin E 1,000 unit PO DAILY 10/21/18 11/10/18 Aspirin 81 mg PO HS 11/10/18 11/10/18 Calcium Carbonate/Vitamin D3 1 tab PO DAILY 11/10/18 11/10/18 [Calcium 500-Vit D3 200 Tablet] Cholecalciferol [Vitamin D3 (25 1,000 unit PO DAILY 11/10/18 11/10/18 Mcg = 1000 Iu)] Omeprazole [PriLOSEC] 20 mg PO AC-BRKFST 11/10/18 11/10/18 Sennosides-Docusate Sodium 2 tab PO BID PRN 11/10/18 11/10/18 [Senokot-S] Previous Rx's Medication Instructions Recorded Morphine Sulfate ER [Ms Contin] 30 mg PO Q12HR #60 tablet 10/17/18 Allergies Allergy/AdvReac Type Severity Reaction Status Date / Time enalapril maleate AdvReac insomnia Verified 11/10/18 12:56 [From Vasotec] enalaprilat dihydrate AdvReac insomnia Verified 11/10/18 12:56 [From Vasotec] cold & sinus medication AdvReac insomnia Uncoded 10/21/18 13:24 Review of Systems ROS Statement: Those systems with pertinent positive or pertinent negative responses have been documented in the HPI. ROS Other: All systems not noted in ROS Statement are negative. Constitutional: Denies: fever Eyes: Denies: eye pain ENT: Denies: ear pain Respiratory: Denies: cough Cardiovascular: Denies: chest pain Endocrine: Reports: as per HPI Gastrointestinal: Reports: as per HPI, hematochezia Genitourinary: Denies: dysuria Musculoskeletal: Reports: other (Chronic pain) Skin: Denies: rash Neurological: Denies: weakness Past Medical History Past Medical History: Cancer, GERD/Reflux, Hyperlipidemia, Hypertension, Osteoarthritis (OA), Prostate Disorder Additional Past Medical History / Comment(s): hx. skin cancer w/radiation yrs ago History of Any Multi-Drug Resistant Organisms: None Reported Past Surgical History: Coronary Bypass/CABG, Joint Replacement, Orthopedic Surgery Additional Past Surgical History / Comment(s): quad. bypass 2009, left knee replaced x2, aadm cataracts, shoulder surg. Past Anesthesia/Blood Transfusion Reactions: No Reported Reaction Past Psychological History: No Psychological Hx Reported Smoking Status: Former smoker Past Alcohol Use History: None Reported Past Drug Use History: None Reported - Past Family History Mother Family Medical History: Myocardial Infarction ([place]) Father Additional Family Medical History / Comment(s): emphysema,Alzheimer's General Exam Limitations: no limitations General appearance: alert, in no apparent distress Head exam: Present: atraumatic Eye exam: Present: normal appearance Neck exam: Present: normal inspection Respiratory exam: Present: normal lung sounds bilaterally Cardiovascular Exam: Present: regular rate, normal rhythm Expanded Peripheral pulses: 2+: Dorsalis Pedis (R), Dorsalis Pedis (L) GI/Abdominal exam: Present: soft. Absent: distended, tenderness, guarding Rectal exam: Present: normal inspection, other (Maroon stool) Extremities exam: Present: pedal edema (+1 bilateral). Absent: calf tenderness Neurological exam: Present: alert Psychiatric exam: Present: normal affect, normal mood Skin exam: Present: normal color Course Vital Signs 11/10/18 12:04 Temperature 97.4 F L Pulse Rate 73 Respiratory 18 Rate Blood Pressure 103/65 O2 Sat by Pulse 98 Oximetry Medical Decision Making - Medical Decision Making Patient reevaluated and resting comfortably in bed. Patient and family updated on results and plan. Case was discussed in detail with Dr. Tapia, who will admit his patient. He does agree with consult with Dr. Valverde and Dr. Mari who the patient has previously seen. - Lab Data Result diagrams: 11/10/18 13:00 11/10/18 13:00 Lab Results 11/10/18 11/10/18 11/10/18 Range/Units 13:00 13:00 13:00 WBC 5.5 (3.8-10.6) k/uL RBC 2.82 L (4.30-5.90) m/uL Hgb 8.7 L (13.0-17.5) gm/dL Hct 28.2 L (39.0-53.0) % MCV 100.0 (80.0-100.0) fL MCH 30.7 (25.0-35.0) pg MCHC 30.7 L (31.0-37.0) g/dL RDW 15.8 H (11.5-15.5) % Plt Count 413 (150-450) k/uL Neutrophils % 68 % Lymphocytes % 19 % Monocytes % 9 % Eosinophils % 1 % Basophils % 0 % Neutrophils # 3.8 (1.3-7.7) k/uL Lymphocytes # 1.0 (1.0-4.8) k/uL Monocytes # 0.5 (0-1.0) k/uL Eosinophils # 0.0 (0-0.7) k/uL Basophils # 0.0 (0-0.2) k/uL Hypochromasia Slight Macrocytosis Slight PT (9.0-12.0) sec INR (<1.2) APTT (22.0-30.0) sec Sodium 136 L (137-145) mmol/L Potassium 4.4 (3.5-5.1) mmol/L Chloride 103 (98-107) mmol/L Carbon Dioxide 27 (22-30) mmol/L Anion Gap 6 mmol/L BUN 44 H (9-20) mg/dL Creatinine 1.17 (0.66-1.25) mg/dL Est GFR (CKD-EPI)AfAm 64 (>60 ml/min/1.73 sqM) Est GFR (CKD-EPI)NonAf 55 (>60 ml/min/1.73 sqM) Glucose 122 H (74-99) mg/dL Calcium 8.3 L (8.4-10.2) mg/dL Total Bilirubin 0.4 (0.2-1.3) mg/dL AST 19 (17-59) U/L ALT 26 (21-72) U/L Alkaline Phosphatase 124 (38-126) U/L Total Protein 5.3 L (6.3-8.2) g/dL Albumin 2.8 L (3.5-5.0) g/dL Stool Occult Blood Positive (Negative) 11/10/18 Range/Units 13:00 WBC (3.8-10.6) k/uL RBC (4.30-5.90) m/uL Hgb (13.0-17.5) gm/dL Hct (39.0-53.0) % MCV (80.0-100.0) fL MCH (25.0-35.0) pg MCHC (31.0-37.0) g/dL RDW (11.5-15.5) % Plt Count (150-450) k/uL Neutrophils % % Lymphocytes % % Monocytes % % Eosinophils % % Basophils % % Neutrophils # (1.3-7.7) k/uL Lymphocytes # (1.0-4.8) k/uL Monocytes # (0-1.0) k/uL Eosinophils # (0-0.7) k/uL Basophils # (0-0.2) k/uL Hypochromasia Macrocytosis PT 10.5 (9.0-12.0) sec INR 1.0 (<1.2) APTT 22.1 (22.0-30.0) sec Sodium (137-145) mmol/L Potassium (3.5-5.1) mmol/L Chloride (98-107) mmol/L Carbon Dioxide (22-30) mmol/L Anion Gap mmol/L BUN (9-20) mg/dL Creatinine (0.66-1.25) mg/dL Est GFR (CKD-EPI)AfAm (>60 ml/min/1.73 sqM) Est GFR (CKD-EPI)NonAf (>60 ml/min/1.73 sqM) Glucose (74-99) mg/dL Calcium (8.4-10.2) mg/dL Total Bilirubin (0.2-1.3) mg/dL AST (17-59) U/L ALT (21-72) U/L Alkaline Phosphatase (38-126) U/L Total Protein (6.3-8.2) g/dL Albumin (3.5-5.0) g/dL Stool Occult Blood (Negative) - Radiology Data Radiology results: image reviewed (Abdominal x-ray shows increased stool. Correlate for multiple myeloma.) Disposition Clinical Impression: Lower GI hemorrhage, Hx of multiple myeloma Disposition: ADMITTED IP TO THIS HOSP Is patient prescribed a controlled substance at d/c from ED?: No Referrals: Jose Miguel Tapia MD [Primary Care Provider] - 1-2 days Decision Time: 14:09
[2018-11-10 13:11] LABS: Basophils % (A) 0 %; Eosinophils % (A) 1 %; HCT 28.2 % (39.0-53.0); HGB 8.7 gm/dL (13.0-17.5); Hypochromasia Slight; Lymphocytes % (A) 19 %; MCH 30.7 pg (25.0-35.0); MCHC 30.7 g/dL (31.0-37.0); Macrocytosis Slight; Monocytes # (A) 0.5 k/uL (0-1.0); Monocytes % (A) 9 %; Neutrophils # (A) 3.8 k/uL (1.3-7.7); Neutrophils % (A) 68 %; Platelet Count 413 k/uL (150-450); RBC 2.82 m/uL (4.30-5.90); RDW 15.8 % (11.5-15.5); WBC 5.5 k/uL (3.8-10.6)
[2018-11-10 13:23] LABS: Albumin 2.8 g/dL (3.5-5.0); Calcium 8.3 mg/dL (8.4-10.2); Partial Thromboplastin Time 22.1 sec (22.0-30.0); Potassium 4.4 mmol/L (3.5-5.1); Prothrombin Time 10.5 sec (9.0-12.0); Total Bilirubin 0.4 mg/dL (0.2-1.3); Total Protein 5.3 g/dL (6.3-8.2)
--- NOTE | 2018-11-10 13:29 | XR ---
EXAMINATION TYPE: XR abdomen 1V DATE OF EXAM: 11/10/2018 COMPARISON: 10/22/2018 HISTORY: Abdominal pain TECHNIQUE: One view abdominal series FINDINGS: Numerous focal lucencies are seen throughout the visualized osseous structures. Arthropathy of the hi ps. Degenerative change of the spine.. The bowel gas pattern is nonspecific. There is extensive kiet ined bowel content. Correlate for constipation. Rib deformity on the right suggest recent fracture. S ternotomy wires are seen and is vascular calcification Lung bases are clear. IMPRESSION: 1. Nonspecific abdomen. Correlate for constipation. 2. Correlate for multiple myeloma. There is are a couple right-sided rib deformities which appears fa irly recent along the lateral right rib cage correlate with point tenderness.
[2018-11-10] MEDS ORDERED: NALOXONE 0.4 MG/ML 1 ML VIAL IV PRN (14:10)
[2018-11-10] MEDS ORDERED: SODIUM CHLORIDE 0.9% 500 ML 500 ML IV STA (14:39)
[2018-11-10] MEDS: SODIUM CHLORIDE 0.9% 1,000 ML IV SCH (14:44)
[2018-11-10] MEDS ORDERED: NITROGLYCERIN SL TABS 0.4 MG TAB SUBLINGUAL PRN (17:47)
[2018-11-10] MEDS: HYDROcodone/APAP 5-325MG 1 EACH TAB PO PRN (18:10)
[2018-11-10 20:18] LABS: Basophils % (A) 0 %; Eosinophils % (A) 0 %; HGB 7.8 gm/dL (13.0-17.5); Hypochromasia Slight; Lymphocytes # (A) 0.8 k/uL (1.0-4.8); Lymphocytes % (A) 17 %; MCH 31.4 pg (25.0-35.0); MCHC 31.2 g/dL (31.0-37.0); MCV 100.6 fL (80.0-100.0); Macrocytosis Slight; Mean Platelet Volume 6.8; Monocytes # (A) 0.4 k/uL (0-1.0); Monocytes % (A) 8 %; Neutrophils # (A) 3.5 k/uL (1.3-7.7); Neutrophils % (A) 73 %; Platelet Count 363 k/uL (150-450); RBC 2.48 m/uL (4.30-5.90); RDW 15.7 % (11.5-15.5); WBC 4.8 k/uL (3.8-10.6)
[2018-11-10] MEDS: TAMSULOSIN 0.4 MG CAP.ER.24H PO SCH (22:48)
[2018-11-10] MEDS: MORPHINE SULFATE ER 30 MG TABLET PO SCH (22:49)
[2018-11-11] MEDS: PANTOPRAZOLE 40 MG/10 ML VIAL IV SCH ×3 (01:11→20:11)
[2018-11-11] MEDS: SODIUM CHLORIDE 0.9% 1,000 ML IV SCH ×2 (06:11→14:43)
--- NOTE | 2018-11-11 07:39 | P.GSCN ---
<Obdulia Buenrostro Jean - Last Filed: 11/11/18 07:34> History of Present Illness Consult date: 11/11/18 Reason for Consult: GI Bleed Requesting physician: Bib Casey History of present illness: CHIEF COMPLAINT: GI bleed HISTORY OF PRESENT ILLNESS: 88-year-old male who presents to the ER with a chief complaint of rectal bleeding. Patient reports bright red blood per rectum that started yesterday. Denies nausea or vomiting. Denies hematemesis or melena. Patient is prescribed aspirin 81mg daily. PAST MEDICAL HISTORY: See list. PAST SURGICAL HISTORY: See list. SOCIAL HISTORY: No illicit drug use. REVIEW OF SYSTEMS: CONSTITUTIONAL: Denies fever or chills. HEENT: Denies blurred vision, vision changes, or eye pain. Denies hemoptysis CARDIOVASCULAR: Denies chest pain or pressure. RESPIRATORY: No shortness of breath. GASTROINTESTINAL: Refer to HPI for pertinent findings HEMATOLOGIC: Denies bleeding disorders. GENITOURINARY: Denies any blood in urine. SKIN: Denies pruitis. Denies rash. PHYSICAL EXAM: VITAL SIGNS: Reviewed. GENERAL: Well-developed in no acute distress. HEENT: No sclera icterus. Extraocular movements grossly intact. Moist buccal mucosa. Head is atraumatic, normocephalic. ABDOMEN: Soft. Nondistended. Nontender. NEUROLOGIC: Alert and oriented. Cranial nerves II through XII grossly intact. LABORATORY DATA: Laboratory data upon admission reveals white count 5.5. Hemoglobin is 8.7. Sodium 136. Potassium 4.4. BUN 44. Creatinine 1.17. Stool for occult blood positive IMAGING: Abdominal x-ray: Nonspecific bowel gas pattern. Extensive retained bowel content. Correlate for constipation. ASSESSMENT: 1. GI bleed, presents with bright red blood per rectum 2. Constipation 3. History of multiple myeloma PLAN: 1. NPO. Continue IV fluids 2. Patient to undergo EGD today. 3. Based on EGD findings, possible colonoscopy tomorrow with bowel prep this afternoon Nurse practitioner note has been reviewed by physician. Signing provider agrees with the documented findings, assessment, and plan of care. Past Medical History Past Medical History: Coronary Artery Disease (CAD), Cancer, Chest Pain / Angina, COPD, GERD/Reflux, Hyperlipidemia, Hypertension, Osteoarthritis (OA), Prostate Disorder Additional Past Medical History / Comment(s): Pancytopenia-multiple myeloma with oral chemo-last taken one week ago, skin cancer removals and spot removed from back also had radiation treatments, back pain, BPH, constipation. History of Any Multi-Drug Resistant Organisms: None Reported Past Surgical History: Coronary Bypass/CABG, Heart Catheterization, Joint Replacement, Orthopedic Surgery, Tonsillectomy Additional Past Surgical History / Comment(s): 2009 CABG 4 vessel, total L knee twice, total R knee, bilateral shoulder surgery, skin cancer removals, 09/19/18 BMA with bx, colonoscopy Past Anesthesia/Blood Transfusion Reactions: No Reported Reaction Smoking Status: Former smoker - Past Family History Mother Family Medical History: Myocardial Infarction ([place]) Father Additional Family Medical History / Comment(s): emphysema,Alzheimer's Medications and Allergies Home Medications Medication Instructions Recorded Confirmed Type Celecoxib [CeleBREX] 200 mg PO DAILY 08/30/15 11/10/18 History Metoprolol Tartrate [Lopressor] 25 mg PO DAILY 08/30/15 11/10/18 History Simvastatin [Zocor] 20 mg PO HS 08/30/15 11/10/18 History Tamsulosin [Flomax] 0.4 mg PO HS 09/18/18 11/10/18 History Cyanocobalamin (Vitamin B-12) 1,000 mcg PO DAILY 10/14/18 11/10/18 History [Vitamin B-12] HYDROcodone/APAP 5-325MG [[place] 1 tab PO Q6H PRN 10/14/18 11/10/18 History 5-325] Lenalidomide [Revlimid] 15 mg PO DIRECTED 10/14/18 11/10/18 History Nitroglycerin Sl Tabs [Nitrostat] 0.4 mg SUBLINGUAL Q5M PRN 10/14/18 11/10/18 History Morphine Sulfate ER [Ms Contin] 30 mg PO Q12HR #60 tablet 10/17/18 11/10/18 Rx Ascorbic Acid [Vitamin C] 500 mg PO DAILY 10/21/18 11/10/18 History Dexamethasone [Hexadrol] 4 mg PO BID@0800,1200 10/21/18 11/10/18 History Isosorbide Dinitrate 30 mg PO DAILY 10/21/18 11/10/18 History Vitamin E 1,000 unit PO DAILY 10/21/18 11/10/18 History Aspirin 81 mg PO HS 11/10/18 11/10/18 History Calcium Carbonate/Vitamin D3 1 tab PO DAILY 11/10/18 11/10/18 History [Calcium 500-Vit D3 200 Tablet] Cholecalciferol [Vitamin D3 (25 1,000 unit PO DAILY 11/10/18 11/10/18 History Mcg = 1000 Iu)] Omeprazole [PriLOSEC] 20 mg PO AC-BRKFST 11/10/18 11/10/18 History Sennosides-Docusate Sodium 2 tab PO BID PRN 11/10/18 11/10/18 History [Senokot-S] Allergies Allergy/AdvReac Type Severity Reaction Status Date / Time enalapril maleate AdvReac insomnia Verified 11/10/18 12:56 [From Vasotec] enalaprilat dihydrate AdvReac insomnia Verified 11/10/18 12:56 [From Vasotec] cold & sinus medication AdvReac insomnia Uncoded 10/21/18 13:24 Surgical - Exam Vital Signs Temp Pulse Resp BP Pulse Ox 97.4 F L 73 18 103/65 98 11/10/18 12:04 11/10/18 12:04 11/10/18 12:04 11/10/18 12:04 11/10/18 12:04 Results - Labs 11/10/18 20:00 11/10/18 13:00 Abnormal Lab Results - Last 24 Hours (Table) 11/10/18 11/10/18 11/10/18 Range/Units 13:00 13:00 20:00 RBC 2.82 L 2.48 L (4.30-5.90) m/uL Hgb 8.7 L 7.8 L (13.0-17.5) gm/dL Hct 28.2 L 25.0 L (39.0-53.0) % MCV 100.6 H (80.0-100.0) fL MCHC 30.7 L (31.0-37.0) g/dL RDW 15.8 H 15.7 H (11.5-15.5) % Lymphocytes # 0.8 L (1.0-4.8) k/uL Sodium 136 L (137-145) mmol/L BUN 44 H (9-20) mg/dL Glucose 122 H (74-99) mg/dL Calcium 8.3 L (8.4-10.2) mg/dL Total Protein 5.3 L (6.3-8.2) g/dL Albumin 2.8 L (3.5-5.0) g/dL Diabetes panel 11/10/18 Range/Units 13:00 Sodium 136 L (137-145) mmol/L Potassium 4.4 (3.5-5.1) mmol/L Chloride 103 (98-107) mmol/L Carbon Dioxide 27 (22-30) mmol/L BUN 44 H (9-20) mg/dL Creatinine 1.17 (0.66-1.25) mg/dL Glucose 122 H (74-99) mg/dL Calcium 8.3 L (8.4-10.2) mg/dL AST 19 (17-59) U/L ALT 26 (21-72) U/L Alkaline Phosphatase 124 (38-126) U/L Total Protein 5.3 L (6.3-8.2) g/dL Albumin 2.8 L (3.5-5.0) g/dL Calcium panel 11/10/18 Range/Units 13:00 Calcium 8.3 L (8.4-10.2) mg/dL Albumin 2.8 L (3.5-5.0) g/dL Pituitary panel 11/10/18 Range/Units 13:00 Sodium 136 L (137-145) mmol/L Potassium 4.4 (3.5-5.1) mmol/L Chloride 103 (98-107) mmol/L Carbon Dioxide 27 (22-30) mmol/L BUN 44 H (9-20) mg/dL Creatinine 1.17 (0.66-1.25) mg/dL Glucose 122 H (74-99) mg/dL Calcium 8.3 L (8.4-10.2) mg/dL Adrenal panel 11/10/18 Range/Units 13:00 Sodium 136 L (137-145) mmol/L Potassium 4.4 (3.5-5.1) mmol/L Chloride 103 (98-107) mmol/L Carbon Dioxide 27 (22-30) mmol/L BUN 44 H (9-20) mg/dL Creatinine 1.17 (0.66-1.25) mg/dL Glucose 122 H (74-99) mg/dL Calcium 8.3 L (8.4-10.2) mg/dL Total Bilirubin 0.4 (0.2-1.3) mg/dL AST 19 (17-59) U/L ALT 26 (21-72) U/L Alkaline Phosphatase 124 (38-126) U/L Total Protein 5.3 L (6.3-8.2) g/dL Albumin 2.8 L (3.5-5.0) g/dL <Erasmo Franco - Last Filed: 11/11/18 10:49> History of Present Illness Consult date: 11/10/18 Surgical - Exam Vital Signs Temp Pulse Resp BP Pulse Ox 97.4 F L 73 18 103/65 98 11/10/18 12:04 11/10/18 12:04 11/10/18 12:04 11/10/18 12:04 11/10/18 12:04 Results - Labs 11/11/18 07:35 11/10/18 13:00 Abnormal Lab Results - Last 24 Hours (Table) 11/10/18 11/10/18 11/10/18 Range/Units 13:00 13:00 20:00 RBC 2.82 L 2.48 L (4.30-5.90) m/uL Hgb 8.7 L 7.8 L (13.0-17.5) gm/dL Hct 28.2 L 25.0 L (39.0-53.0) % MCV 100.6 H (80.0-100.0) fL MCHC 30.7 L (31.0-37.0) g/dL RDW 15.8 H 15.7 H (11.5-15.5) % Lymphocytes # 0.8 L (1.0-4.8) k/uL Sodium 136 L (137-145) mmol/L BUN 44 H (9-20) mg/dL Glucose 122 H (74-99) mg/dL Calcium 8.3 L (8.4-10.2) mg/dL Total Protein 5.3 L (6.3-8.2) g/dL Albumin 2.8 L (3.5-5.0) g/dL 11/11/18 Range/Units 07:35 RBC 2.58 L (4.30-5.90) m/uL Hgb 8.2 L (13.0-17.5) gm/dL Hct 26.4 L (39.0-53.0) % MCV 102.4 H (80.0-100.0) fL MCHC (31.0-37.0) g/dL RDW 15.7 H (11.5-15.5) % Lymphocytes # (1.0-4.8) k/uL Sodium (137-145) mmol/L BUN (9-20) mg/dL Glucose (74-99) mg/dL Calcium (8.4-10.2) mg/dL Total Protein (6.3-8.2) g/dL Albumin (3.5-5.0) g/dL Diabetes panel 11/10/18 Range/Units 13:00 Sodium 136 L (137-145) mmol/L Potassium 4.4 (3.5-5.1) mmol/L Chloride 103 (98-107) mmol/L Carbon Dioxide 27 (22-30) mmol/L BUN 44 H (9-20) mg/dL Creatinine 1.17 (0.66-1.25) mg/dL Glucose 122 H (74-99) mg/dL Calcium 8.3 L (8.4-10.2) mg/dL AST 19 (17-59) U/L ALT 26 (21-72) U/L Alkaline Phosphatase 124 (38-126) U/L Total Protein 5.3 L (6.3-8.2) g/dL Albumin 2.8 L (3.5-5.0) g/dL Calcium panel 11/10/18 Range/Units 13:00 Calcium 8.3 L (8.4-10.2) mg/dL Albumin 2.8 L (3.5-5.0) g/dL Pituitary panel 11/10/18 Range/Units 13:00 Sodium 136 L (137-145) mmol/L Potassium 4.4 (3.5-5.1) mmol/L Chloride 103 (98-107) mmol/L Carbon Dioxide 27 (22-30) mmol/L BUN 44 H (9-20) mg/dL Creatinine 1.17 (0.66-1.25) mg/dL Glucose 122 H (74-99) mg/dL Calcium 8.3 L (8.4-10.2) mg/dL Adrenal panel 11/10/18 Range/Units 13:00 Sodium 136 L (137-145) mmol/L Potassium 4.4 (3.5-5.1) mmol/L Chloride 103 (98-107) mmol/L Carbon Dioxide 27 (22-30) mmol/L BUN 44 H (9-20) mg/dL Creatinine 1.17 (0.66-1.25) mg/dL Glucose 122 H (74-99) mg/dL Calcium 8.3 L (8.4-10.2) mg/dL Total Bilirubin 0.4 (0.2-1.3) mg/dL AST 19 (17-59) U/L ALT 26 (21-72) U/L Alkaline Phosphatase 124 (38-126) U/L Total Protein 5.3 L (6.3-8.2) g/dL Albumin 2.8 L (3.5-5.0) g/dL Assessment and Plan Assessment: We'll perform EGD. If this is negative we will perform colonoscopy.
[2018-11-11 08:27] LABS: Basophils % (A) 0 %; Eosinophils % (A) 1 %; HCT 26.4 % (39.0-53.0); HGB 8.2 gm/dL (13.0-17.5); Hypochromasia Moderate; Lymphocytes # (A) 1.1 k/uL (1.0-4.8); Lymphocytes % (A) 23 %; MCH 31.8 pg (25.0-35.0); MCV 102.4 fL (80.0-100.0); Macrocytosis Slight; Mean Platelet Volume 6.7; Monocytes # (A) 0.4 k/uL (0-1.0); Monocytes % (A) 9 %; Neutrophils # (A) 3.1 k/uL (1.3-7.7); Neutrophils % (A) 65 %; Platelet Count 366 k/uL (150-450); RBC 2.58 m/uL (4.30-5.90); RDW 15.7 % (11.5-15.5); WBC 4.8 k/uL (3.8-10.6)
[2018-11-11] MEDS ORDERED: PANTOPRAZOLE 40 MG/10 ML VIAL IV SCH (09:00)
[2018-11-11] MEDS: DEXAMETHASONE 4 MG TAB PO SCH ×2 (09:01→12:18)
[2018-11-11] MEDS: METOPROLOL TARTRATE 25 MG TAB PO SCH (09:01)
[2018-11-11] MEDS: MORPHINE SULFATE ER 30 MG TABLET PO SCH ×2 (09:01→16:40)
[2018-11-11] MEDS ORDERED: IV FLUID CONTINUATION 700 ML IV ONE (10:30)
[2018-11-11] MEDS ORDERED: ePHEDrine SULFATE/0.9% NACL/PF 50 MG/5 ML SYRINGE IV ONE (10:31)
[2018-11-11] MEDS ORDERED: LIDOCAINE 1% INJ 10MG/ML (20 ML MDV) ONE (10:31)
[2018-11-11] MEDS ORDERED: PROPOFOL 10 MG/ML 20 ML VIAL IV ONE (10:31)
[2018-11-11] MEDS ORDERED: PEG 3350-NA SULF,BICARB,CL/KCL 4,000 ML BOTTLE PO ONE (10:47)
--- NOTE | 2018-11-11 10:47 | P.OP ---
Date of Procedure: 11/11/18 Preoperative Diagnosis: GI bleed Postoperative Diagnosis: No evidence of upper GI bleed Procedure(s) Performed: EGD Anesthesia: MAC Surgeon: Erasmo Franco Pathology: none sent Condition: stable Disposition: PACU Description of Procedure: The patient's placed on the endoscopy table in the lateral position. Sees IV sedation. The gastroscope placed oropharynx passed in the esophagus and into the stomach. The scope was then placed through the pylorus. The first second portion of duodenum appeared normal. There is no evidence of any upper GI bleed in the stomach or duodenum. The scope was brought back there is no unsteady ulceration the antrum. The scope was retroflexed remainder some appeared normal. There is no hiatal hernia. The GE junction was at 40 cm. The distal esophagus appeared normal. The proximal esophagus. Normal. Scope was withdrawn for patient.
[2018-11-11] MEDS: HYDROcodone/APAP 5-325MG 1 EACH TAB PO PRN (13:16)
[2018-11-11 14:43] VITALS: BMI 21.5
--- NOTE | 2018-11-11 18:54 | HP ---
HISTORY AND PHYSICAL CHIEF COMPLAINT: Rectal bleeding. HISTORY OF PRESENT ILLNESS: This is another admission for this elderly gentleman who was recently diagnosed as having multiple myeloma. He is having a very difficult time managing at home with his , who is nearly bedridden with stage IV [employer] congestive heart failure. When asked why he came back to the emergency room, he states, "I don't know." He did come in because of rectal bleeding. He is an extremely poor historian. Probably his biggest problem is depression in dealing with all these issues. REVIEW OF SYSTEMS: He denies syncope, change in vision or hearing, chest pain, shortness of breath, palpitations, syncope, abdominal pain, vomiting, melena, proctitis, etc. He cannot even describe the color of the stool. He does have a little trouble with incontinence and urgency, but this is chronic. He is not diabetic. Past medical history, family history, and personal and social histories are all otherwise unremarkable or noncontributory. They are unchanged. PHYSICAL EXAMINATION: Blood pressure is 136/72 with a pulse of 75, respirations of 33. He is afebrile. In general, he appeared to be pale and weak. Skin was dry. Head, ears, eyes, nose, mouth and throat were normal. Chest was clear. Cardiac exam demonstrated what sounded like sinus tachycardia. The abdomen was flat, soft and nontender. Extremities were normal. Rectal exam was not performed at this time. He is admitted to the hospital with diagnoses: 1. Gastrointestinal bleeding. 2. Multiple myeloma. 3. Chronic anemia. 4. Coronary artery disease. 5. History of hypertension. 6. Depression. PLAN: 1. IV fluids. 2. Follow hemoglobin. 3. Consult with General Surgery. MMODL / IJN: [id number] /
--- NOTE | 2018-11-11 19:39 | PN ---
PROGRESS NOTE DATE OF SERVICE: 11/11/2018 CHIEF COMPLAINT: GI bleed. HISTORY OF PRESENT ILLNESS: This gentleman has been stable. His vital signs have been normal. He has had no pain, further bleeding, shortness of breath, etc. PHYSICAL EXAMINATION: Chest is clear. He is slightly pale. Cardiac exam is normal. Abdomen is soft and flat. Extremities are normal. IMPRESSION: 1. Gastrointestinal bleed. 2. Anemia due to chronic illness. 3. Coronary artery disease. 4. Depression. 5. Chronic kidney disease. PLAN: He is going for endoscopy today. MMODL / IJN: [id number] /
[2018-11-11] MEDS: TAMSULOSIN 0.4 MG CAP.ER.24H PO SCH (20:10)
[2018-11-12] MEDS: MORPHINE SULFATE ER 30 MG TABLET PO SCH ×3 (00:30→15:48)
[2018-11-12] MEDS: SODIUM CHLORIDE 0.9% 1,000 ML IV SCH (07:20)
[2018-11-12] MEDS: DEXAMETHASONE 4 MG TAB PO SCH (08:39)
[2018-11-12] MEDS: METOPROLOL TARTRATE 25 MG TAB PO SCH (08:39)
[2018-11-12] MEDS: PANTOPRAZOLE 40 MG/10 ML VIAL IV SCH ×2 (08:40→21:47)
[2018-11-12] MEDS: MEGESTROL 400 MG/10 ML CUP PO SCH ×2 (10:05→11:53)
--- NOTE | 2018-11-12 11:16 | P.CONS ---
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 On September 03 he did have a bone scan which failed to show metastatic myeloma to the bone on 09/19/2018 bone marrow biopsy was performed and positive for sheets of record get monoclonal A light chain restricted cells consistent with multiple myeloma although cytogenetics were revealing as normal. He was last seen by Dr. Valverde office at that time the risks and benefits of treatment given his advanced age and multiple comorbidities was discussed although his most recent bone scan revealed no evidence of metastatic myeloma to the bone his back pain has persisted over the last month as well as his calcium levels are elevated therefore treatment with Revlimid and weekly dexamethasone and every 6 weeks and Zometa has been ordered he has not yet started this treatment if his back pain is persistent and unrelieved with current therapy an MRI of the spine has been o rdered for potential palliative radiation Review of Systems A 14 point review of systems was assessed and completed and are all negative except for HPI Past Medical History Past Medical History: Coronary Artery Disease (CAD), Cancer, Chest Pain / Angina, COPD, GERD/Reflux, Hyperlipidemia, Hypertension, Osteoarthritis (OA), Prostate Disorder Additional Past Medical History / Comment(s): Pancytopenia-multiple myeloma with oral chemo-last taken one week ago, skin cancer removals and spot removed from back also had radiation treatments, back pain, BPH, constipation. History of Any Multi-Drug Resistant Organisms: None Reported Past Surgical History: Coronary Bypass/CABG, Heart Catheterization, Joint Replacement, Orthopedic Surgery, Tonsillectomy Additional Past Surgical History / Comment(s): 2009 CABG 4 vessel, total L knee twice, total R knee, bilateral shoulder surgery, skin cancer removals, 09/19/18 BMA with bx, colonoscopy Past Anesthesia/Blood Transfusion Reactions: No Reported Reaction Smoking Status: Former smoker - Past Family History Mother Family Medical History: Myocardial Infarction ([place]) Father Additional Family Medical History / Comment(s): emphysema,Alzheimer's Medications and Allergies Home Medications Medication Instructions Recorded Confirmed Type Celecoxib [CeleBREX] 200 mg PO DAILY 05/24/16 08/05/19 History Metoprolol Tartrate [Lopressor] 25 mg PO DAILY 08/30/15 11/10/18 History Simvastatin [Zocor] 20 mg PO HS 08/30/15 11/10/18 History Tamsulosin [Flomax] 0.4 mg PO HS 09/18/18 11/10/18 History Cyanocobalamin (Vitamin B-12) 1,000 mcg PO DAILY 10/14/18 11/10/18 History [Vitamin B-12] HYDROcodone/APAP 5-325MG [[place] 1 tab PO Q6H PRN 10/14/18 11/10/18 History 5-325] Lenalidomide [Revlimid] 15 mg PO DIRECTED 10/14/18 11/10/18 History Nitroglycerin Sl Tabs [Nitrostat] 0.4 mg SUBLINGUAL Q5M PRN 10/14/18 11/10/18 History Morphine Sulfate ER [Ms Contin] 30 mg PO Q12HR #60 tablet 10/17/18 11/10/18 Rx Ascorbic Acid [Vitamin C] 500 mg PO DAILY 10/21/18 11/10/18 History Dexamethasone [Hexadrol] 4 mg PO BID@0800,1200 10/21/18 11/10/18 History Isosorbide Dinitrate 30 mg PO DAILY 10/21/18 11/10/18 History Vitamin E 1,000 unit PO DAILY 10/21/18 11/10/18 History Aspirin 81 mg PO HS 11/10/18 11/10/18 History Calcium Carbonate/Vitamin D3 1 tab PO DAILY 11/10/18 11/10/18 History [Calcium 500-Vit D3 200 Tablet] Cholecalciferol [Vitamin D3 (25 1,000 unit PO DAILY 11/10/18 11/10/18 History Mcg = 1000 Iu)] Omeprazole [PriLOSEC] 20 mg PO AC-BRKFST 11/10/18 11/10/18 History Sennosides-Docusate Sodium 2 tab PO BID PRN 11/10/18 11/10/18 History [Senokot-S] Allergies Allergy/AdvReac Type Severity Reaction Status Date / Time enalapril maleate AdvReac insomnia Verified 11/10/18 12:56 [From Vasotec] enalaprilat dihydrate AdvReac insomnia Verified 11/10/18 12:56 [From Vasotec] cold & sinus medication AdvReac insomnia Uncoded 10/21/18 13:24 Physical Exam Vitals: Vital Signs Temp Pulse Pulse Resp BP BP Pulse Ox 11/11/18 11:52 97.0 F L 52 L 16 137/60 95 11/11/18 05:03 97.5 F L 62 16 131/74 94 L 11/10/18 21:35 97.6 F 59 L 16 126/59 96 11/10/18 16:26 96.0 F L 63 18 135/63 97 11/10/18 16:00 97.6 F 56 L 16 109/68 96 11/10/18 15:00 56 L 12 90/48 96 11/10/18 14:36 97.6 F 61 21 90/48 95 Intake and Output 11/10/18 11/11/18 11/11/18 22:59 06:59 14:59 Intake Total 262.5 600 800 Balance 262.5 600 800 Intake: IV 200 Intake, IV Titration 262.5 600 600 Amount Sodium Chloride 0.9% 1, 262.5 600 600 000 ml @ 75 mls/hr IV . [id number] [facility] Rx#:[id number] Other: Voiding Method Toilet Toilet # Voids 1 3 # Bowel Movements 1 2 General: Alert and Oriented x3, No Acute Distress Head: Normocytic, Atraumatic Neck: Supple Mouth: No Lesions, No Thrush Eyes: Non-sclerotic No Palpable cervical, supraclavicular, axillary adenopathy Heart: Regular Rate, Regular Rhythm Lungs: Clear to Ausculations, No Wheeze, No Rhonchi, Diminishe bilateral lower lobes, No increased respiratory effort noted Abdomen: Soft, Non-Distended, Non-Tended, BSx4 Extremities: No Edema, Equal Strength Neurological: No Focal Defects: No sensory or motor deficits noted Psych: Calm and cooperative Results CBC & Chem 7: 11/11/18 07:35 11/10/18 13:00 Labs: Abnormal Lab Results - Last 24 Hours (Table) 11/10/18 11/11/18 Range/Units 20:00 07:35 RBC 2.48 L 2.58 L (4.30-5.90) m/uL Hgb 7.8 L 8.2 L (13.0-17.5) gm/dL Hct 25.0 L 26.4 L (39.0-53.0) % MCV 100.6 H 102.4 H (80.0-100.0) fL RDW 15.7 H 15.7 H (11.5-15.5) % Lymphocytes # 0.8 L (1.0-4.8) k/uL Assessment and Plan Plan: Assessment and Recommendations: IgG [place] Multiple Myeloma - Recent Diagnosis: - Revlimid 15mg PO Daily Days 1-21, q28 and weekly Dexamethasone along with Zometa q6 weeks has been ordered although not started - Will initiate dexamethasone 20mg po x1 today, PPI, and a dose of aredia - Received Areda in hospital last admission for Hypercalcemia, plan was to start Zometa in office. Back/Bone Pain secondary to Metastatic Disease Multiple Myeloma: -MS Contin increased every 8 hours and breakthrough meds changed. - Bowel regimen increased to avoid narcotic induced constipation. Decreased PO Intake; - Megace Rectal Bleeding: - Poss induced constipation and steroids - increase ppi - Colonscopy per Gen Surg - Monitor CBC Plan: Long Discussion with patient and daughters, remediation is needed to patient and family - He is a poor historian continues to refuse radiation therapy, understanding for pain management and pallaitive intent - Decrease Dex maite x3 days then to weekly
--- NOTE | 2018-11-12 11:46 | P.PN ---
Progress Note - Text Progress Note Date: 11/12/18 Per nursing, patient only finished 1/2 of his bowel prep. Patient had a formed brown bowel movement today. Colonoscopy cancelled for today. Patient to complete additional bowel prep today. clear liquid diet. NPO at midnight. Colonoscopy rescheduled for tomorrow.
[2018-11-12] MEDS: PEG 3350-NA SULF,BICARB,CL/KCL 4,000 ML BOTTLE PO ONE ×2 (11:54→16:38)
[2018-11-12] MEDS: HYDROcodone/APAP 5-325MG 1 EACH TAB PO PRN ×2 (13:34→19:36)
[2018-11-12 13:46] LABS: Anisocytosis Slight; Basophils % (A) 0 %; Eosinophils % (A) 0 %; HCT 34.3 % (39.0-53.0); HGB 10.8 gm/dL (13.0-17.5); Hypochromasia Slight; Lymphocytes # (A) 1.1 k/uL (1.0-4.8); Lymphocytes % (A) 13 %; MCH 31.8 pg (25.0-35.0); MCHC 31.4 g/dL (31.0-37.0); MCV 101.5 fL (80.0-100.0); Macrocytosis Slight; Mean Platelet Volume 7.6; Monocytes # (A) 0.8 k/uL (0-1.0); Monocytes % (A) 9 %; Neutrophils # (A) 6.3 k/uL (1.3-7.7); Neutrophils % (A) 76 %; Platelet Count 447 k/uL (150-450); RBC 3.38 m/uL (4.30-5.90); RDW 16.8 % (11.5-15.5); WBC 8.3 k/uL (3.8-10.6)
--- NOTE | 2018-11-12 13:57 | P.PN ---
Progress Note - Text Progress Note Date: 11/12/18 Notified by nursing that patient is tearful and states he does not want to proceed with bowel prep for colonoscopy tomorrow. Family at bedside and agreeable to not having colonoscopy performed. Procedure will be cancelled per family and patient request. Bowel prep discontinued. patient may have regular diet. We will sign off. Please reconsult if needed
--- NOTE | 2018-11-12 14:53 | P.PN ---
Subjective Progress Note Date: 11/12/18 Principal diagnosis: Multiple Myeloma patient is having a difficult time with hospitalization and diagnosis. His Hemoglobin is recovering and does not appear to be immediate threat of blood loss. The family and patient have been struggling with descisions regarding aggressiveness of care versus comfort only. They have had hard time with making decisions and repeated remediation addressing goals of care, expectations of treatments and options has been provided and discussed in detail. Objective - Vital Signs Vital signs: Vital Signs Temp 98.3 F 11/12/18 12:07 Pulse 67 11/12/18 12:07 Resp 17 11/12/18 12:07 BP 154/72 11/12/18 12:07 Pulse Ox 98 11/12/18 12:07 Intake & Output 11/11/18 11/12/18 11/12/18 18:59 06:59 18:59 Intake Total 800 862.5 0 Balance 800 862.5 0 Weight 68.039 kg Intake: IV 200 Intake, IV Titration 600 862.5 Amount Sodium Chloride 0.9% 1, 600 862.5 000 ml @ 75 mls/hr IV . [id number] [facility] Rx#:[id number] Oral 0 Other: Voiding Method Toilet Toilet # Voids 1 # Bowel Movements 3 - Exam General: No Acute Distress Head: Normocytic, Atraumatic Neck: Supple Mouth: No Lesions, No Thrush Eyes: Non-sclerotic No Palpable cervical, supraclavicular, axillary adenopathy Heart: Regular Rate, Regular Rhythm Lungs: Diminishe bilateral lower lobes, No increased respiratory effort noted Abdomen: Soft, Non-Distended, Non-Tended, BSx4 - Labs CBC & Chem 7: 11/12/18 13:35 11/10/18 13:00 Labs: Abnormal Lab Results - Last 24 Hours (Table) 11/12/18 Range/Units 13:35 RBC 3.38 L (4.30-5.90) m/uL Hgb 10.8 L (13.0-17.5) gm/dL Hct 34.3 L (39.0-53.0) % MCV 101.5 H (80.0-100.0) fL RDW 16.8 H (11.5-15.5) % Assessment and Plan Plan: Assessment and Recommendations: IgG [place] Multiple Myeloma - Recent Diagnosis: - Revlimid 15mg PO Daily Days 1-21, q28 and weekly Dexamethasone along with Zometa q6 weeks has been ordered although not started - Will initiate dexamethasone 20mg po x1 today, PPI, and a dose of aredia - Received Areda in hospital last admission for Hypercalcemia, plan was to start Zometa in office. Back/Bone Pain secondary to Metastatic Disease Multiple Myeloma: -MS Contin increased every 8 hours and breakthrough meds changed. - Bowel regimen increased to avoid narcotic induced constipation. Decreased PO Intake; - Megace Rectal Bleeding: - Poss induced constipation and steroids - increase ppi - Colonscopy per Gen Surg - Monitor CBC Plan: Long Discussion with patient and daughters, remediation is needed to patient and family. I joined their hospice information meeting and they have agreed to go home with palliative care with goal of hospice care eventually. - He is a poor historian continues to refuse radiation therapy, understanding for pain management and palliative intent - Decrease Dex maite x3 days then to weekly - Plan for discharge with Palliative prison care and PT/OT - Plan to continue on Revlimid and monthly Zometa in the interim - Continue on pain management - Patient in tears over colonoscopy, with stable hemoglobin ok to withhold from hematology standpoint at this time. - Will plan for follow-up with Dr. Valverde 2-3 weeks and patient may receive Zomta outpatient at that time.
--- NOTE | 2018-11-12 19:38 | PN ---
PROGRESS NOTE CHIEF COMPLAINT: Lower gastrointestinal bleed and multiple myeloma. HISTORY OF PRESENT ILLNESS: This gentleman had an upper GI endoscopy yesterday and apparently was unremarkable. He is scheduled to go back for colonoscopy today. He is feeling well. He has no complaints. PHYSICAL EXAM: He is slightly pale. Chest is clear. Cardiac exam is normal. Abdomen is flat, soft and no masses or tenderness. IMPRESSION: 1. Probable lower gastrointestinal bleed. 2. Multiple myeloma. 3. Coronary artery disease. 4. Depression. PLAN: 1. Colonoscopy is planned for later today. 2. The patient asked about places that he and his could go if and when they have to leave their home and he will be referred to adoption social worker and discharge planning. They are no longer appropriate patients to live alone. MMODL / FARHADN: [id number] /
[2018-11-12] MEDS: TAMSULOSIN 0.4 MG CAP.ER.24H PO SCH (21:47)
[2018-11-13] MEDS: SODIUM CHLORIDE 0.9% 1,000 ML IV SCH ×2 (01:33→09:35)
[2018-11-13] MEDS: MORPHINE SULFATE ER 30 MG TABLET PO SCH ×3 (01:38→17:08)
[2018-11-13] MEDS: MEGESTROL 400 MG/10 ML CUP PO SCH (09:34)
[2018-11-13] MEDS: DEXAMETHASONE 4 MG TAB PO SCH (09:34)
[2018-11-13] MEDS: METOPROLOL TARTRATE 25 MG TAB PO SCH (09:34)
[2018-11-13] MEDS: PANTOPRAZOLE 40 MG/10 ML VIAL IV SCH ×2 (09:35→20:10)
--- NOTE | 2018-11-13 12:36 | P.PN ---
Subjective Progress Note Date: 11/13/18 Principal diagnosis: Multiple Myeloma Patient is going to be residing in assistive living with . He will restart revlimid today. Objective - Vital Signs Vital signs: Vital Signs Temp 98.5 F 11/13/18 11:41 Pulse 60 11/13/18 11:41 Resp 17 11/13/18 11:41 BP 110/50 11/13/18 11:41 Pulse Ox 94 L 11/13/18 11:41 Intake & Output 11/12/18 11/13/18 11/13/18 18:59 06:59 18:59 Intake Total 2030 1826 Output Total 10 Balance 2020 1826 Intake: Intake, IV Titration 600 750 Amount Sodium Chloride 0.9% 1, 600 750 000 ml @ 75 mls/hr IV . [id number] [facility] Rx#:[id number] Oral 1431 1077 Output: Urine 10 Other: Voiding Method Toilet Toilet # Voids 1 4 # Bowel Movements 4 - Exam General: No Acute Distress Head: Normocytic, Atraumatic Neck: Supple Mouth: No Lesions, No Thrush Eyes: Non-sclerotic No Palpable cervical, supraclavicular, axillary adenopathy Heart: Regular Rate, Regular Rhythm Lungs: Diminishe bilateral lower lobes, No increased respiratory effort noted Abdomen: Soft, Non-Distended, Non-Tended, BSx4 - Labs CBC & Chem 7: 11/14/18 09:03 11/14/18 09:03 Labs: Abnormal Lab Results - Last 24 Hours (Table) 11/12/18 Range/Units 13:35 RBC 3.38 L (4.30-5.90) m/uL Hgb 10.8 L (13.0-17.5) gm/dL Hct 34.3 L (39.0-53.0) % MCV 101.5 H (80.0-100.0) fL RDW 16.8 H (11.5-15.5) % Assessment and Plan Plan: Assessment and Recommendations: IgG [place] Multiple Myeloma - Recent Diagnosis: - Revlimid 15mg PO Daily Days 1-21, q28 and weekly Dexamethasone along with Zometa q6 weeks has been ordered although not started - Will initiate dexamethasone 20mg po x1 today, PPI, and a dose of aredia - Received Areda in hospital last admission for Hypercalcemia, plan was to start Zometa in office. Back/Bone Pain secondary to Metastatic Disease Multiple Myeloma: -MS Contin increased every 8 hours and breakthrough meds changed. - Bowel regimen increased to avoid narcotic induced constipation. Decreased PO Intake; - Megace Rectal Bleeding: - Poss induced constipation and steroids - increase ppi - Colonscopy per Gen Surg - Monitor CBC Plan: 8.7.19Long Discussion with patient and daughters, remediation is needed to patient and family. I joined their hospice information meeting and they have agreed to go home with palliative care with goal of hospice care eventually. - He is a poor historian continues to refuse radiation therapy, understanding for pain management and palliative intent - Decrease Dex maite x3 days then to weekly Continued DISPO PLan: - Plan for discharge with Palliative senior care care and PT/OT and plan for easier transition to hospice when they both choose - Plan to continue on Revlimid and monthly Zometa in the interim - Plan to reside in assistive living daughters have picked a residence - Continue on pain management - Patient in tears over colonoscopy, with stable hemoglobin ok to withhold from hematology standpoint at this time. Await todays CBC - Will plan for follow-up with Dr. Valverde 2-3 weeks and patient may receive Zomta outpatient at that time.
[2018-11-13 18:19] LABS: Anisocytosis Slight; Basophils % (A) 0 %; Eosinophils % (A) 1 %; HCT 27.9 % (39.0-53.0); HGB 8.5 gm/dL (13.0-17.5); Hypochromasia Slight; Lymphocytes # (A) 0.5 k/uL (1.0-4.8); Lymphocytes % (A) 9 %; MCH 31.8 pg (25.0-35.0); MCHC 30.6 g/dL (31.0-37.0); MCV 103.8 fL (80.0-100.0); Macrocytosis Moderate; Mean Platelet Volume 7.2; Monocytes # (A) 0.4 k/uL (0-1.0); Monocytes % (A) 7 %; Neutrophils # (A) 4.1 k/uL (1.3-7.7); Neutrophils % (A) 82 %; Platelet Count 408 k/uL (150-450); RBC 2.69 m/uL (4.30-5.90); RDW 16.5 % (11.5-15.5)
[2018-11-13 19:01] LABS: Albumin 2.5 g/dL (3.5-5.0); Calcium 7.8 mg/dL (8.4-10.2); Potassium 4.5 mmol/L (3.5-5.1); Total Bilirubin 0.3 mg/dL (0.2-1.3); Total Protein 4.8 g/dL (6.3-8.2)
[2018-11-13] MEDS: TAMSULOSIN 0.4 MG CAP.ER.24H PO SCH (20:10)
--- NOTE | 2018-11-13 21:42 | PN ---
PROGRESS NOTE CHIEF COMPLAINT: GI blood loss and anemia. HISTORY OF PRESENT ILLNESS: This gentleman is doing reasonably well. He is stable and he has had no further bleeding. No further studies are planned. The patient was informed that he and his will be going in assisted living facility once the room is available. In the meantime, he will be going to [facility] for rehab, which may only be for a week or 2. PHYSICAL EXAM: Chest is clear. Cardiac exam is normal. He remains very weak. IMPRESSION: 1. Multiple myeloma. 2. Gastrointestinal bleed. 3. Chronic anemia. 4. Coronary artery disease. 5. Hypertension. 6. Chronic obstructive pulmonary disease. 7. Depression. PLAN: prison placement. MMODL / IJN: [id number] /
[2018-11-14] MEDS: MORPHINE SULFATE ER 30 MG TABLET PO SCH ×3 (00:08→16:56)
[2018-11-14] MEDS: SODIUM CHLORIDE 0.9% 1,000 ML IV SCH (06:07)
[2018-11-14] MEDS: PANTOPRAZOLE 40 MG/10 ML VIAL IV SCH ×2 (09:12→20:11)
[2018-11-14] MEDS: METOPROLOL TARTRATE 25 MG TAB PO SCH (09:13)
[2018-11-14] MEDS: MEGESTROL 400 MG/10 ML CUP PO SCH (09:13)
[2018-11-14] MEDS: DEXAMETHASONE 4 MG TAB PO SCH (09:13)
[2018-11-14 09:59] LABS: Basophils % (A) 0 %; Eosinophils # (A) 0.1 k/uL (0-0.7); Eosinophils % (A) 2 %; HGB 10.3 gm/dL (13.0-17.5); Hypochromasia Marked; Lymphocytes # (A) 1.4 k/uL (1.0-4.8); Lymphocytes % (A) 24 %; MCH 31.9 pg (25.0-35.0); MCHC 29.4 g/dL (31.0-37.0); MCV 108.3 fL (80.0-100.0); Macrocytosis Marked; Mean Platelet Volume 7.2; Monocytes # (A) 0.4 k/uL (0-1.0); Monocytes % (A) 7 %; Neutrophils # (A) 3.7 k/uL (1.3-7.7); Neutrophils % (A) 66 %; Platelet Count 407 k/uL (150-450); RBC 3.23 m/uL (4.30-5.90); RDW 15.9 % (11.5-15.5); WBC 5.7 k/uL (3.8-10.6)
[2018-11-14 10:09] LABS: ALT 26 U/L (21-72); AST 33 U/L (17-59); African American GFR (CKD) >90 (>60 ml/min/1.73 sqM); Alkaline Phosphatase 142 U/L (38-126); Anion Gap 8 mmol/L; Blood Urea Nitrogen 15 mg/dL (9-20); Calcium 8.3 mg/dL (8.4-10.2); Carbon Dioxide 20 mmol/L (22-30); Chloride 108 mmol/L (98-107); Glucose 90 mg/dL (74-99); Sodium 136 mmol/L (137-145); Total Bilirubin 0.8 mg/dL (0.2-1.3); Total Protein 5.8 g/dL (6.3-8.2)
[2018-11-14 10:19] LABS: Potassium 4.6 mmol/L (3.5-5.1)
[2018-11-14 11:21] LABS: Poikilocytosis (M) Present
[2018-11-14 11:22] LABS: RBC Fragments Present
--- NOTE | 2018-11-14 12:46 | PN ---
PROGRESS NOTE DATE OF SERVICE: 11/14/2018 CHIEF COMPLAINT: General debility and failure to thrive with multiple myeloma and lower GI bleed. HISTORY OF PRESENT ILLNESS: This gentleman is doing well. He has had no bleeding. He is awaiting a discharge plan. At this time, it is it looks as though he will be going to [facility]. PHYSICAL EXAM: He is slightly pale. Chest is clear. Cardiac exam is normal. IMPRESSION: 1. Lower gastrointestinal bleed. 2. Multiple myeloma. 3. General debility and weakness. PLAN: Prepare for discharge to [facility] when bed is available. MMODL / IJN: [id number] /
--- NOTE | 2018-11-14 13:09 | P.PN ---
Subjective Progress Note Date: 11/14/18 Principal diagnosis: Multiple Myeloma No family at time of evaluation, no acute complaints from patient Objective - Vital Signs Vital signs: Vital Signs Temp 97.9 F 11/14/18 11:22 Pulse 54 L 11/14/18 11:22 Resp 18 11/14/18 11:22 BP 112/54 11/14/18 11:22 Pulse Ox 99 11/14/18 11:22 Intake & Output 11/13/18 11/14/18 11/14/18 18:59 06:59 18:59 Intake Total 880 240 240 Balance 880 240 240 Weight 68.039 kg Intake: Oral 880 240 240 Other: Voiding Method Toilet Toilet Toilet # Voids 1 3 2 # Bowel Movements 1 1 - Exam General: No Acute Distress Head: Normocytic, Atraumatic Neck: Supple Mouth: No Lesions, No Thrush Eyes: Non-sclerotic No Palpable cervical, supraclavicular, axillary adenopathy Heart: Regular Rate, Regular Rhythm Lungs: Diminishe bilateral lower lobes, No increased respiratory effort noted Abdomen: Soft, Non-Distended, Non-Tended, BSx4 - Labs CBC & Chem 7: 11/14/18 09:03 11/14/18 09:03 Labs: Abnormal Lab Results - Last 24 Hours (Table) 11/13/18 11/13/18 11/14/18 Range/Units 16:40 16:40 09:03 RBC 2.69 L 3.23 L (4.30-5.90) m/uL Hgb 8.5 L D 10.3 L (13.0-17.5) gm/dL Hct 27.9 L 35.0 L (39.0-53.0) % MCV 103.8 H 108.3 H (80.0-100.0) fL MCHC 30.6 L 29.4 L (31.0-37.0) g/dL RDW 16.5 H 15.9 H (11.5-15.5) % Lymphocytes # 0.5 L (1.0-4.8) k/uL Macrocytosis Marked A Sodium (137-145) mmol/L Chloride (98-107) mmol/L Carbon Dioxide (22-30) mmol/L Glucose 119 H (74-99) mg/dL Calcium 7.8 L (8.4-10.2) mg/dL Alkaline Phosphatase 131 H (38-126) U/L Total Protein 4.8 L (6.3-8.2) g/dL Albumin 2.5 L (3.5-5.0) g/dL 11/14/18 Range/Units 09:03 RBC (4.30-5.90) m/uL Hgb (13.0-17.5) gm/dL Hct (39.0-53.0) % MCV (80.0-100.0) fL MCHC (31.0-37.0) g/dL RDW (11.5-15.5) % Lymphocytes # (1.0-4.8) k/uL Macrocytosis Sodium 136 L (137-145) mmol/L Chloride 108 H (98-107) mmol/L Carbon Dioxide 20 L (22-30) mmol/L Glucose (74-99) mg/dL Calcium 8.3 L (8.4-10.2) mg/dL Alkaline Phosphatase 142 H (38-126) U/L Total Protein 5.8 L (6.3-8.2) g/dL Albumin 3.0 L (3.5-5.0) g/dL Assessment and Plan Plan: Assessment and Recommendations: IgG [place] Multiple Myeloma - Recent Diagnosis: - Revlimid 15mg PO Daily Days 1-21, q28 and weekly Dexamethasone along with Zometa q6 weeks has been ordered although not started - Will initiate dexamethasone 20mg po x1 today, PPI, and a dose of aredia - Received Areda in hospital last admission for Hypercalcemia, plan was to start Zometa in office. Back/Bone Pain secondary to Metastatic Disease Multiple Myeloma: -MS Contin increased every 8 hours and breakthrough meds changed. - Bowel regimen increased to avoid narcotic induced constipation. Decreased PO Intake; - Megace Rectal Bleeding: - Poss induced constipation and steroids - increase ppi - Colonscopy per Gen Surg - Monitor CBC Plan: 8.7.19Long Discussion with patient and daughters, remediation is needed to patient and family. I joined their hospice information meeting and they have agreed to go home with palliative care with goal of hospice care eventually. - He is a poor historian continues to refuse radiation therapy, understanding for pain management and palliative intent - Decrease Dex maite x3 days then to weekly Continued DISPO PLan: - Plan for discharge with Palliative correction care and PT/OT and plan for easier transition to hospice when they both choose - Plan to continue on Revlimid and monthly Zometa in the interim - Plan to reside in assistive living daughters have picked a residence - Continue on pain management - remeddiation to patient and family continued.
--- NOTE | 2018-11-14 16:46 | CDI ---
Documentation Clarification Form Date: 11/14/2018 4:21:24 PM From: April Ramirez RN, CCDS Admit Date: 11/10/2018 2:10:00 PM Patient Name: Kojo Vega Visit Number: [id number] Discharge Date: ATTENTION: The Clinical Documentation Specialists (CDI) and [facility] Coding Staff appreciate your assistance in clarifying documentation. Please respond to the clarification below the line at the bottom and electronically sign. The CDI & [facility] Coding staff will review the response and follow-up if needed. Please note: Queries are made part of the Legal Health Record. If you have any questions, please contact the author of this message via ITS. Dr. Jose Miguel Renteria A pressure ulcer was documented in the nursing wound assessment on 11/10/18 at 19:06 and further documentation by the attending is needs. History/Risk Factors: Multiple Myeloma, GERD, Coronary Artery disease, Former smoker Clinical Indicators: 88-year-old male who present from home to the ED with complaints of abdominal cramping and blood in stool. Patient has a history of intermittent constipation and diarrhea especially over the past several days. Vital signs on admission 103/65 73 18 97.4 Location: Coccyx Wound description: length 2 cm, width 1 cm, stage II, with erythema, wound margins -Distinct, [place]-wound Rash. (See wound assessment) Treatment: Monitor skin integrity Medicated Gel & Ointment Elements for accurate and compliant documentation of an ulcer: *The location/laterality of the ulcer *Etiology (decubitus/pressure, diabetic, PVD) *Stage I-IV, Unstageable, Suspected Deep Tissue Injury (To the deepest stage) *If the ulcer was present at admission (POA) or occurred after admission In your professional opinion, can you please clarify the diagnosis, location, laterality and whether present on admission (POA): Stage 1 Pressure/Decubitus Ulcer (intact skin, non-blanching redness of local area) present on admission Stage 2 Pressure/Decubitus Ulcer (Partial thickness, loss of dermis, pink wound bed) present on admission Unstageable, present on admission Other condition, please specify Unable to determine Please indicate etiology of pressure ulcer, stage, and if present on admission (if known). (Last Revision: January 2017) MTDD
[2018-11-14] MEDS: TAMSULOSIN 0.4 MG CAP.ER.24H PO SCH (20:11)
[2018-11-15] MEDS: MORPHINE SULFATE ER 30 MG TABLET PO SCH ×3 (00:02→16:10)
[2018-11-15] MEDS: SODIUM CHLORIDE 0.9% 1,000 ML IV SCH ×3 (03:23→14:21)
[2018-11-15] MEDS: PANTOPRAZOLE 40 MG/10 ML VIAL IV SCH (08:32)
[2018-11-15] MEDS: METOPROLOL TARTRATE 25 MG TAB PO SCH (08:32)
[2018-11-15] MEDS: DEXAMETHASONE 4 MG TAB PO SCH (08:32)
[2018-11-15] MEDS: MEGESTROL 400 MG/10 ML CUP PO SCH (08:33)
[2018-11-15] MEDS: HYDROcodone/APAP 5-325MG 1 EACH TAB PO PRN (14:23)
[2018-11-15] MEDS: PANTOPRAZOLE 40 MG TABLET PO SCH (16:11)
[2018-11-15] MEDS: TAMSULOSIN 0.4 MG CAP.ER.24H PO SCH (19:40)
--- NOTE | 2018-11-15 20:53 | PN ---
PROGRESS NOTE DATE OF SERVICE: 11/15/2018 This 88-year-old gentleman who was admitted with acute lower GI bleed also had multiple myeloma. The patient also has generalized weakness and tiredness. Apparently, Dr. Tapia was planning to send the patient to [facility]. However, the patient is not willing, but the family is concerned. Currently, sodium is 136 and WBC 5.2, hemoglobin 10.3. Patient closely monitored. PAST MEDICAL HISTORY: Reviewed. REVIEW OF SYSTEMS: CARDIOVASCULAR SYSTEM: No angina or palpitations. RESPIRATION as mentioned earlier. GASTROINTESTINAL: No nausea or vomiting. no dysuria. CENTRAL NERVOUS SYSTEM: No numbness. No weakness. CURRENT MEDICATIONS: 1. [place] 5 mg q.6h. 2. Hexadrol 4 mg daily. 3. Megace 40 mg daily. 4. Lopressor 25 mg daily. 5. MS Contin 30 mg q.8h. 6. Narcan 0.2 q.2 p.r.n. 7. Nitrostat 0.4 mg p.r.n. 8. Protonix 40 mg b.i.d. 9. Silver sulfadiazine. 10.Flomax 0.4 q.h.s. PHYSICAL EXAM: Patient is alert and oriented times two. Pulse 66, blood pressure 110/54. Respirations 18, temperature 98.4, pulse ox 98% on room air. HEENT: Conjunctivae normal. NECK: No JVD. CARDIOVASCULAR SYSTEM: S1, S2 muffled. RESPIRATORY SYSTEM: Breath sounds diminished at the bases. A few scattered rhonchi and crackles. ABDOMEN: Soft, nontender. LEGS: No edema. NERVOUS SYSTEM: Diffusely weak. LABS: WBC 5.2, hemoglobin 10.2. Sodium 136. Albumin is 3. ASSESSMENT: 1. Acute lower gastrointestinal bleeding on presentation. 2. IgG kappa multiple myeloma, recently diagnosed. 3. 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 4. Gait dysfunction. 5. History of coronary artery disease. 6. History of chronic obstructive pulmonary disease. 7. Gastroesophageal reflux disease. 8. Hypertension. 9. Hyperlipidemia. 10.History of degenerative joint disease. 11.History of pancytopenia. 12.History of coronary artery disease, coronary artery bypass grafting. RECOMMENDATIONS AND DISCUSSION: This 88-year-old gentleman who presented with multiple complex medical issues, at this time, I recommend to continue current medications, management and symptomatic treatment. I would recommend PT/OT and manager social work to evaluate the patient and home situation and decide about the ECF versus assisted living. Will continue to monitor. Repeat labs ordered. Further recommendations to follow. MMODL / IJN: [id number] /
[2018-11-16] MEDS: MORPHINE SULFATE ER 30 MG TABLET PO SCH ×4 (00:05→23:18)
[2018-11-16] MEDS: SODIUM CHLORIDE 0.9% 1,000 ML IV SCH ×2 (01:14→16:23)
[2018-11-16] MEDS: HYDROcodone/APAP 5-325MG 1 EACH TAB PO PRN ×3 (06:31→21:00)
[2018-11-16 07:22] LABS: African American GFR (CKD) >90 (>60 ml/min/1.73 sqM); Anion Gap 5 mmol/L; Blood Urea Nitrogen 17 mg/dL (9-20); Calcium 8.5 mg/dL (8.4-10.2); Carbon Dioxide 27 mmol/L (22-30); Chloride 104 mmol/L (98-107); Glucose 81 mg/dL (74-99); Potassium 4.1 mmol/L (3.5-5.1); Sodium 136 mmol/L (137-145)
[2018-11-16 07:52] LABS: Basophils % (A) 0 %; Eosinophils # (A) 0.1 k/uL (0-0.7); Eosinophils % (A) 2 %; HCT 28.9 % (39.0-53.0); HGB 8.9 gm/dL (13.0-17.5); Hypochromasia Slight; Lymphocytes # (A) 1.1 k/uL (1.0-4.8); Lymphocytes % (A) 22 %; MCH 31.4 pg (25.0-35.0); MCHC 30.8 g/dL (31.0-37.0); Macrocytosis Slight; Mean Platelet Volume 8.1; Monocytes # (A) 0.3 k/uL (0-1.0); Monocytes % (A) 6 %; Neutrophils # (A) 3.5 k/uL (1.3-7.7); Neutrophils % (A) 69 %; Platelet Count 272 k/uL (150-450); RBC 2.83 m/uL (4.30-5.90); RDW 15.9 % (11.5-15.5); WBC 5.1 k/uL (3.8-10.6)
[2018-11-16 07:55] LABS: MCV 101.8 fL (80.0-100.0)
[2018-11-16] MEDS: METOPROLOL TARTRATE 25 MG TAB PO SCH (08:14)
[2018-11-16] MEDS: DEXAMETHASONE 4 MG TAB PO SCH (08:14)
[2018-11-16] MEDS: PANTOPRAZOLE 40 MG TABLET PO SCH ×2 (08:14→16:23)
[2018-11-16] MEDS: MEGESTROL 400 MG/10 ML CUP PO SCH (08:15)
--- NOTE | 2018-11-16 19:21 | PN ---
PROGRESS NOTE DATE OF SERVICE: 11/16/2018 I am covering for Dr. Tapia This 88-year-old gentleman was admitted with acute lower GI bleed and multiple myeloma. The patient also has some gait dysfunction. The patient apparently also has been qualified for ECF and currently the family is planning Assisted Care Facility at [facility], which will happen in 10 days. The family is planning to take the patient home, but at this point, currently it is unclear whether the family has all the set up at home ready for the patient. The staff is unaware. No chest pain no palpitation. EXAM: Alert and oriented x3. Pulse 65, blood pressure 115/60, respirations 16, temperature 97 degrees, pulse ox 91 percent on room air. HEENT: Conjunctivae pink. Sclerae normal. NECK: No jugular venous distention. CARDIOVASCULAR: S1, S2 muffled. RESPIRATORY: Diminished breath sounds at the bases. A few scattered rhonchi, no crackles. ABDOMEN: Soft, nontender. NERVOUS SYSTEM: No focal deficits. Mild diffuse weakness. LAB STUDIES: WBC 5, hemoglobin is 8.9, sodium 136. ASSESSMENT: 1. Acute lower gastrointestinal bleeding on presentation. 2. Acute blood loss anemia. 3. IgG kappa multiple myeloma recently diagnosed. 4. History of back pain and bone pain secondary to metastatic disease. 5. Gait dysfunction. 6. History of coronary artery disease. 7. History of chronic obstructive pulmonary disease. 8. Gastroesophageal reflux disease. 9. Hypertension. 10.Hyperlipidemia. 11.History of degenerative joint disease. 12.History of pancytopenia. 13.History of coronary artery disease, coronary artery bypass grafting. RECOMMENDATIONS AND DISCUSSION: Recommend to continue current management and symptomatic treatment. I would recommend the patient to recommend social and political studies professor and community case manager to evaluate the patient to make sure the patient has all the necessary items at home and in that case the patient may be discharged in the next [address] Tapia will follow. Continue to monitor. Repeat labs are ordered. MMODL / IJN: [id number] /
[2018-11-16 20:59] VITALS: RESP 16
[2018-11-16] MEDS: TAMSULOSIN 0.4 MG CAP.ER.24H PO SCH (21:01)
[2018-11-17] MEDS: DEXAMETHASONE 4 MG TAB PO SCH (08:29)
[2018-11-17] MEDS: PANTOPRAZOLE 40 MG TABLET PO SCH (08:29)
[2018-11-17] MEDS: MORPHINE SULFATE ER 30 MG TABLET PO SCH ×2 (08:30→15:10)
[2018-11-17] MEDS: METOPROLOL TARTRATE 25 MG TAB PO SCH (08:30)
[2018-11-17] MEDS: MEGESTROL 400 MG/10 ML CUP PO SCH (08:31)
[2018-11-17] MEDS: SODIUM CHLORIDE 0.9% 1,000 ML IV SCH (08:32)
--- NOTE | 2018-11-17 08:57 | CDI ---
Documentation Clarification Form Date: 11/17/2018 8:03:00 AM From: April Ramirez RN, CCDS Admit Date: 11/10/2018 2:10:00 PM Patient Name: Kojo Vega Visit Number: [id number] Discharge Date: ATTENTION: The Clinical Documentation Specialists (CDI) and [facility] Coding Staff appreciate your assistance in clarifying documentation. Please respond to the clarification below the line at the bottom and electronically sign. The CDI & [facility] Coding staff will review the response and follow-up if needed. Please note: Queries are made part of the Legal Health Record. If you have any questions, please contact the author of this message via ITS. Dr. Jose Miguel Tapia Chronic kidney disease is documented in your progress note on 11/11/18 and further clarification is needed History/Risk Factors: Multiple Myeloma, Hypertension, Coronary artery disease Clinical Indicators: 88-year-old male who present with acute lower GI bleed and multiple myeloma. Chronic kidney disease is noted. Current BUN 17, CR 0.72 GFR 83 On admission BUN 44 CR 1.17 GFR 55 11/13/2018 BUN 16, CR 0.87 GFR 77 Treatment: IVF In order to capture the severity of condition, please clarify if the condition signifies: CKD Stage 1 (GFR > 90) CKD Stage 2 (GFR 60-89) CKD Stage 3 (GFR 30-59) Other, please specify __ Unable to determine (Last Revision: July 2017) MTDD
[2018-11-17 09:01] LABS: Anisocytosis Slight; Basophils % (A) 0 %; Eosinophils # (A) 0.2 k/uL (0-0.7); Eosinophils % (A) 3 %; HCT 29.4 % (39.0-53.0); HGB 9.2 gm/dL (13.0-17.5); Hypochromasia Moderate; Lymphocytes # (A) 1.1 k/uL (1.0-4.8); Lymphocytes % (A) 21 %; MCH 31.9 pg (25.0-35.0); MCHC 31.1 g/dL (31.0-37.0); MCV 102.6 fL (80.0-100.0); Macrocytosis Moderate; Mean Platelet Volume 7.1; Monocytes # (A) 0.2 k/uL (0-1.0); Monocytes % (A) 3 %; Neutrophils # (A) 3.8 k/uL (1.3-7.7); Neutrophils % (A) 72 %; Platelet Count 271 k/uL (150-450); RBC 2.87 m/uL (4.30-5.90); RDW 16.1 % (11.5-15.5); WBC 5.3 k/uL (3.8-10.6)
[2018-11-17 09:15] LABS: African American GFR (CKD) >90 (>60 ml/min/1.73 sqM); Anion Gap 6 mmol/L; Blood Urea Nitrogen 21 mg/dL (9-20); Calcium 8.3 mg/dL (8.4-10.2); Carbon Dioxide 26 mmol/L (22-30); Chloride 103 mmol/L (98-107); Glucose 97 mg/dL (74-99); Potassium 4.1 mmol/L (3.5-5.1); Sodium 135 mmol/L (137-145)
[2018-11-17 12:18] VITALS: BP 150/64; PULSE 62; TEMP 97.6
--- NOTE | 2018-11-17 23:55 | DS ---
DISCHARGE SUMMARY CHIEF COMPLAINT: Bright red rectal bleeding. HISTORY OF PRESENT ILLNESS AND PHYSICAL EXAM: Details of this man's history and physical can be found in the initial workup. LABORATORY STUDIES: While he was in the hospital, he had laboratory studies, details of which can be found in the laboratory section of his chart. COURSE IN HOSPITAL: After admission, he was placed on bedrest, started on intravenous fluids and a for GI bleeding. He had no further bleeding. Surgery felt it was unnecessary to do an endoscopy and he was kept in the hospital until discharge arrangements could be made. The family was making arrangements to move his into an extended care facility, but the room would not be ready for a period of time. He was hoped he could go to rehab in the meantime. However, this could not be arranged. He was discharged home with home care on the . FINAL DIAGNOSES: 1. Lower gastrointestinal bleed. 2. Multiple myeloma. 3. History of coronary artery disease. 4. Hypertension. 5. Depression. OPERATIONS: None. CONSULTATIONS: Oncology and surgery. He is improved. MMODL / IJN: [id number] /
--- NOTE | 2018-11-18 05:46 | MISC ---
MISCELLANOUS REPORT QUERY Stage 2 GFR for renal failure. MMODL / IJN: [id number] /
--- NOTE | 2018-11-18 05:46 | MISC ---
MISCELLANOUS REPORT QUERY Stage decubitus not present on admission. MMODL / IJN: [id number] /
--- NOTE | 2018-11-28 13:05 | CDI ---
Documentation Clarification Form Date: 11/14/2018 4:21:00 PM From: April Ramirez RN, CCDS Admit Date: 11/10/2018 2:10:00 PM Patient Name: Kojo Vega Visit Number: [id number] Discharge Date: 11/17/2018 4:10:00 PM ATTENTION: The Clinical Documentation Specialists (CDI) and [facility] Coding Staff appreciate your assistance in clarifying documentation. Please respond to the clarification below the line at the bottom and electronically sign. The CDI & [facility] Coding staff will review the response and follow-up if needed. Please note: Queries are made part of the Legal Health Record. If you have any questions, please contact the author of this message via ITS. Dr. Jose Miguel Tapia A pressure ulcer was documented in the nursing wound assessment on 11/10/18 at 19:06 and further documentation by the attending is needs. History/Risk Factors: Multiple Myeloma, GERD, Coronary Artery disease, Former smoker Clinical Indicators: 88-year-old male who present from home to the ED with complaints of abdominal cramping and blood in stool. Patient has a history of intermittent constipation and diarrhea especially over the past several days. Vital signs on admission 103/65 73 18 97.4 Location: Coccyx Wound description: length 2 cm, width 1 cm, stage II, with erythema, wound margins -Distinct, [place]-wound Rash. Treatment: Monitor skin integrity Medicated Gel & Ointment Elements for accurate and compliant documentation of an ulcer: *The location/laterality of the ulcer *Etiology (decubitus/pressure, diabetic, PVD) *Stage I-IV, Unstageable, Suspected Deep Tissue Injury (To the deepest stage) *If the ulcer was present at admission (POA) or occurred after admission In your professional opinion, can you please clarify the diagnosis, location, laterality and whether present on admission (POA): Stage 2 Pressure/Decubitus Ulcer (Partial thickness, loss of dermis, pink wound bed) present on admission Unstageable, present on admission Other condition, please specify Unable to determine Please indicate etiology of pressure ulcer, stage, and if present on admission (if known). (Last Revision: January 2017) MTDD
--- NOTE | 2018-11-28 22:33 | MISC ---
MISCELLANOUS REPORT Stage II pressure decubitus ulcer, partial thickness, loss of dermis present on admission. MMODL / IJN: [id number] /
== END 2018-11-17 16:10 | disposition home health service (06) | DRG 378 ==
LOC: EC 11:58 → 3NMEDONC 14:10
PROVIDERS: ADMIT Family Medicine; ATTEND Family Medicine
PROC: 0DJ08ZZ Inspection of Upper Intestinal Tract, Via Natural or Artificial Opening Endoscopic (ICD-10-PCS; principal; 2018-11-11 07:50)
DX: K92.2 Gastrointestinal hemorrhage, unspecified (principal); C90.00 Multiple myeloma not having achieved remission; D62 Acute posthemorrhagic anemia; I10 Essential (primary) hypertension; K21.9 Gastro-esophageal reflux disease without esophagitis; L89.152 Pressure ulcer of sacral region, stage 2; I25.10 Atherosclerotic heart disease of native coronary artery without angina pectoris; I12.9 Hypertensive chronic kidney disease with stage 1 through stage 4 chronic kidney disease, or unspecified chronic kidney disease; D63.8 Anemia in other chronic diseases classified elsewhere; K59.00 Constipation, unspecified; E78.5 Hyperlipidemia, unspecified; Z51.5 Encounter for palliative care; G89.3 Neoplasm related pain (acute) (chronic); R62.7 Adult failure to thrive; T38.0X5A Adverse effect of glucocorticoids and synthetic analogues, initial encounter; R53.81 Other malaise; N18.2 Chronic kidney disease, stage 2 (mild); M54.9 Dorsalgia, unspecified; R26.9 Unspecified abnormalities of gait and mobility; F32.9 Major depressive disorder, single episode, unspecified; J44.9 Chronic obstructive pulmonary disease, unspecified; N40.0 Benign prostatic hyperplasia without lower urinary tract symptoms; M19.90 Unspecified osteoarthritis, unspecified site; Z79.1 Long term (current) use of non-steroidal anti-inflammatories (NSAID); Z79.82 Long term (current) use of aspirin; Z79.899 Other long term (current) drug therapy; Z82.0 Family history of epilepsy and other diseases of the nervous system; Z82.49 Family history of ischemic heart disease and other diseases of the circulatory system; Z82.5 Family history of asthma and other chronic lower respiratory diseases; Z85.828 Personal history of other malignant neoplasm of skin; Z87.891 Personal history of nicotine dependence; Z92.3 Personal history of irradiation; Z95.1 Presence of aortocoronary bypass graft; Z88.8 Allergy status to other drugs, medicaments and biological substances; Z98.42 Cataract extraction status, left eye; Z98.41 Cataract extraction status, right eye; Z90.89 Acquired absence of other organs; Z86.2 Personal history of diseases of the blood and blood-forming organs and certain disorders involving the immune mechanism
CPT/HCPCS: 36415; 43235; 74018; 80048; 80053; 82272; 85025; 85610; 85730; 96361; 96374; 99284